=== PATIENT | male | born 1970 | race Caucasian/White ===

== ENCOUNTER → 2025-03-17 13:46 | Outpatient (BNVA) | payer SELFPAY | PROVIDERS: Visit Provider Family Medicine | DX: I10 Essential (primary) hypertension (principal); K46.9 Unspecified abdominal hernia without obstruction or gangrene; N52.9 Male erectile dysfunction, unspecified; R53.83 Other fatigue; R79.89 Other specified abnormal findings of blood chemistry | CPT/HCPCS: 80053; 80061; 82040; 84270; 84403; 84443; 85025; G0103 ==

== ENCOUNTER 2025-04-28 08:09 | Inpatient (IN) | payer OTHER, BC, MEDICAID, SELFPAY ==
[2025-04-28] VITALS (18 sets, daily range): BP systolic 128–171; BP diastolic 70–118; PULSE 76–103; RESP 16–27; TEMP 36.6–37; O2SAT 91–98; BMI 23.0
--- NOTE | 2025-04-28 08:08 | ECG_ITS ---
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 Measurements Intervals [place] Rate: 74 P: 75 AR: 131 QRS: 71 QRSD: 152 T: 236 QT: 443 QTc: 492 Interpretive Statements SINUS RHYTHM LEFT ATRIAL ENLARGEMENT [-0.15mV P-WAVE IN V1/V2] LEFT BUNDLE BRANCH BLOCK [120+ ms QRS DURATION, 80+ ms Q/S IN V1/V2, 85+ ms R IN I/aVL/V5/V6] Compared to ECG 07/31/2018 18:54:45 Atrial abnormality now present Left bundle-branch block now present Myocardial infarct finding no longer present Electronically Signed On 04-28-2025 15:36:20 CDT by Lazaro Lemus M.D. [email or web address]
--- NOTE | 2025-04-28 08:11 | XRR_ITS ---
PROCEDURE INFORMATION: Exam: XR Chest Exam date and time: 04/28/2025 8:39 AM Age: 54 years old Clinical indication: Pain; Angina pectoris; Prior surgery; Surgery date: 6+ months; Surgery type: Spine; Additional info: Chest pain TECHNIQUE: Imaging protocol: Radiologic exam of the chest. Views: 1 view. COMPARISON: CT chest abdpel [id number] 03/22/2025 10:41 AM FINDINGS: Lungs: There is a background of emphysema, mild bronchiectasis and pulmonary fibrosis. Strandy opacities are seen in the left upper hemithorax and in the lung bases bilaterally most probably representing atelectasis versus parenchymal or pleural scarring. Pleural spaces: The hemidiaphragms are partially obscured likely secondary to tiny bilateral pleural effusions. Heart/Mediastinum: The cardiac silhouette is prominent without evidence of cardiac decompensation. Bones/joints: Unremarkable. XR/XR chest 1V portable [id number] IMPRESSION: 1. There are no acute chest findings. 2. Background of emphysema, mild bronchiectasis and pulmonary fibrosis. 3. Strandy opacities in the left upper hemithorax and lung bases most probably represents atelectasis versus parenchymal or pleural scarring. 4. Probable tiny bilateral pleural effusions.
--- NOTE | 2025-04-28 08:14 | W.ED.CHESTPA ---
HPI - Chest Pain General: Chief Complaint: Chest Pain Stated Complaint: Chest Pain Time Seen by Provider: 04/28/25 08:11 History of Present Illness: 54-year-old male presents emergency room complaining of chest pain he states has been going on for a month. He was seen yesterday brought in by EMS was triaged to the rating room due to volumes. He had seen his primary care doctor had reported progressively worsening symptoms of CHF. Patient reports he had an EKG done yesterday at the doctor's office although there is no one available on the chart. Patient reports that he has an intramural thrombus for which he was prescribed Eliquis that was found 1 month ago when he was at [facility] in [place] and he states at that time he also had an angiogram they told him that his heart was only working at 20%. He left the emergency room here yesterday AMA. He reports he is still continuing to take his apixaban. Associated symptoms: Deny abdominal pain, dyspnea or fever(s) Related Data Previous Rx's ?Medication ?Instructions ?Recorded apixaban 5 mg tablet 5 mg PO BID blood clot #1 tab 03/27/25 aspirin 81 mg tablet 81 mg PO DAILY #1 tab 03/27/25 atorvastatin 40 mg tablet (Lipitor) 40 mg PO DAILY #1 tab 03/27/25 empagliflozin 10 mg tablet 10 mg PO DAILY #1 tab 03/27/25 losartan 25 mg tablet 25 mg PO DAILY #1 tab 03/27/25 metoprolol tartrate 25 mg tablet 25 mg PO BID #1 tab 03/27/25 furosemide 40 mg tablet (Lasix) 80 mg (2 x 40 mg) PO DAILY #60 tabs 04/27/25 potassium chloride 10 mEq 20 meq (2 x 10 mEq) PO DAILY #60 04/27/25 capsule,extended release caps Allergies Allergy/AdvReac Type Severity Reaction Status Date / Time morphine Allergy ALGY-Hives Verified 04/28/25 08:17 Review of Systems Const: Denies: fever(s) or chills Card: Reports: chest pain, dyspnea on exertion and orthopnea; Denies: swelling of feet/ankles Resp: Denies: dyspnea GI: Denies: abdominal pain : Denies: dysuria, urinary frequency or urinary urgency Musc: Denies: neck pain or back pain Skin/Breast: Denies: rash PFSH ED PFSH: Social History Smoking and tobacco/nicotine status: never used tobacco/nicotine Adopted: No Housing: House Marital status: Number of children: 2 Highest education level completed: 12th Grade, No Diploma service: No Current occupational status: disabled Current gender identity: Male Physical Exam Const: GENERAL APPEARANCE: cooperative ORIENTATION/CONSCIOUSNESS: Yes awake, Yes oriented to person, Yes oriented to place and Yes oriented to time HENMT: COMMON NORMALS: normocephalic, atraumatic and hearing grossly normal bilaterally HEAD & SCALP: normocephalic and atraumatic Resp: COMMON NORMALS: normal respiratory effort, No retractions and No use of accessory muscles AUSCULTATION: rales bilateral at the base Cardio: COMMON NORMALS: regular rate, regular rhythm and No murmurs present (Cardio) RATE: regular rate RHYTHM: regular rhythm GI: COMMON NORMALS: Soft to palpation and No hepatosplenomegaly present AUSCULTATION: Yes normoactive bowel sounds PALPATION: Yes Soft to palpation, No Tenderness to palpation present (GI), No Guarding due to palpation present (GI) and Yes No hepatosplenomegaly present Extremity: COMMON NORMALS: normal to inspection, capillary refill normal, no clubbing, cyanosis or edema, no calf tenderness and no pedal edema Neuro: SENSORIUM/ORIENTATION: Yes oriented to person, Yes oriented to place and Yes oriented to time Skin: COMMON NORMALS: no rashes or lesions noted GENERAL SKIN EXAM: no rashes or lesions noted Course Vital Signs: Vital signs: Vital Signs Temperature 97.8 F 04/28/25 08:09 Pulse Rate 78 04/28/25 10:00 Respiratory Rate 20 H 04/28/25 10:00 Blood Pressure 144/97 04/28/25 10:00 Pulse Oximetry 96 04/28/25 10:00 Oxygen Delivery Me thod Room Air 04/28/25 08:09 MDM - Chest Pain Medical Decision Making Patient seen evaluated initial lab work ordered. Evaluate for acute coronary syndrome, CHF, pneumonia COPD. Laboratory test ordered. Patient does have a new bundle branch block on initial EKG but this is compared to EKG from 2019. Patient is reporting that his had an angiogram done about a month ago that was completely normal. Patient presents emergency room with chest discomfort intermittently for last several weeks decompensating congestive heart failure. She has had increasing shortness of breath with exertion and increasing orthopnea. Recently hospitalized at [facility] we are trying to get those records but do not have them at this time. BNP elevated. Blood pressure improved from what patient reported yesterday. Per the patient he had an EF of 20%, normal coronary arteries in the left ventricular thrombus for which she was started on oral anticoagulant. We are working to confirm that with old records. Will admit for decompensated congestive heart failure discussed with Dr. Shukla. Patient given fentanyl and Lasix. Vital signs are stable still not requiring oxygen at this time Medical Records I reviewed the patient's medical records. Lab Data I reviewed the patient's lab results. 04/28/25 08:35 04/28/25 08:35 Radiology Impressions Chest X-Ray 04/28/25 08:11 IMPRESSION: 1. There are no acute chest findings. 2. Background of emphysema, mild bronchiectasis and pulmonary fibrosis. 3. Strandy opacities in the left upper hemithorax and lung bases most probably represents atelectasis versus parenchymal or pleural scarring. 4. Probable tiny bilateral pleural effusions. Laboratory Results WBC 9.76 10^3/uL (3.29-11.43) 04/28/25 08:35 RBC 4.87 10^6/uL (3.85-5.65) 04/28/25 08:35 Hgb 15.20 g/dL (11.27-16.99) 04/28/25 08:35 Hct 45.8 % (37-53) 04/28/25 08:35 MCV 94.0 fl (82-101) 04/28/25 08:35 MCH 31.2 pg (27-33) 04/28/25 08:35 MCHC 33.2 g/dL (30-55) 04/28/25 08:35 RDW 14.5 % (12.1-15.1) 04/28/25 08:35 Plt Count 291 10^3/cmm (157-399) 04/28/25 08:35 MPV 10.6 fL (7.4-10.4) H 04/28/25 08:35 Neut % (Auto) 66.6 % 04/28/25 08:35 Lymph % (Auto) 24.2 % 04/28/25 08:35 [place] % (Auto) 6.5 % 04/28/25 08:35 Eos % (Auto) 1.8 % 04/28/25 08:35 Baso % (Auto) 0.7 % 04/28/25 08:35 Neut # (Auto) 6.50 10^3/uL (1.8-7.7) 04/28/25 08:35 Lymph # (Auto) 2.4 10^3/uL (0.8-4.8) 04/28/25 08:35 [place] # (Auto) 0.6 10^3/uL (0.2-0.9) 04/28/25 08:35 Eos # (Auto) 0.2 10^3/uL (0.0-0.8) 04/28/25 08:35 Baso # (Auto) 0.1 10^3/uL (0.0-0.1) 04/28/25 08:35 Nucleated RBC % (auto) 0 % 04/28/25 08:35 Nucleated RBCs # 0.0 /100WBC 04/28/25 08:35 Sodium 137 mmol/L (136-145) 04/28/25 08:35 Potassium 4.8 mmol/L (3.5-5.1) 04/28/25 08:35 Chloride 101 mmol/L (98-107) 04/28/25 08:35 Carbon Dioxide 23 mmol/L (22-29) 04/28/25 08:35 Anion Gap 17.8 (5-19) 04/28/25 08:35 BUN 21 mg/dL (6-20) H 04/28/25 08:35 Creatinine 1.0 mg/dL (0.7-1.2) 04/28/25 08:35 GFR Calculation 77.3 mL/min (90-130) L 04/28/25 08:35 Glucose 110 mg/dL (65-115) 04/28/25 08:35 Calculated Osmolality 288 mOsm/kg (285-295) 04/28/25 08:35 Calcium 9.1 mg/dL (8.5-10.5) 04/28/25 08:35 Total Bilirubin 0.6 mg/dL (0.15-1.2) 04/28/25 08:35 AST 20 U/L (0-40) 04/28/25 08:35 ALT 57 U/L (0-41) H 04/28/25 08:35 Alkaline Phosphatase 107 U/L (40-130) 04/28/25 08:35 Troponin T Baseline 52 ng/L (0-15) H 04/28/25 08:35 NT-Pro-B Natriuret Pep 03914 pg/mL (0-125) H 04/28/25 08:35 Total Protein 5.8 g/dL (6.6-8.7) L 04/28/25 08:35 Albumin 3.9 g/dL (3.5-5.2) 04/28/25 08:35 Globulin 1.9 g/dL (1.3-4.6) 04/28/25 08:35 All radiology interpretation(s) finalized by discharge EKG Data EKG 1: Interpretation: EKG 04/28/2025 8:08 AM sinus rhythm with left bundle branch block. Rate of 74. [place] 131 QTc 470 changes related to left bundle branch block. Compared to EKG from July 31, 2018 left bundle branch block is new. 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
--- OUTSIDE RECORDS SUMMARY | 2025-04-28 08:17 | XMS_ITS | Clinical Summary ---
Author Organization [facility] Address [address] [place]: Epic Prelude ADT TAMMY JONES [address] Care Team Providers Care Service Advisor Name Role Phone Unavailable Primary Care Provider Unavailabl e Allergies Active Allergy Reactions Criticality Noted Date Comments Morphine Itching Low 08/02/2013 Medications apixaban (ELIQUIS) 5 mg tablet Take 1 Tablet (5 mg) by mouth 2 times daily. 60 Tablet 2 03/25/2025 1:53 PM CDT 03/25/2025 5 Active aspirin (ECOTRIN EC) 81 mg Tablet, Delayed Release (E.C.) Take 1 Tablet (81 mg) by mouth daily. 30 Tablet 2 03/25/2025 1:53 PM CDT 03/25/2025 5 Active empagliflozin (JARDIANCE) 10 mg tablet Take 1 Tablet (10 mg) by mouth daily in the morning. 30 Tablet 2 03/25/2025 1:53 PM CDT 03/26/2025 5 Active losartan (COZAAR) 25 mg tablet Take 1 Tablet (25 mg) by mouth daily. 30 Tablet 2 03/25/2025 1:53 PM CDT 03/26/2025 5 Active metoprolol tartrate (LOPRESSOR) 25 mg tablet Take 1 Tablet (25 mg) by mouth every 12 hours. 60 Tablet 2 03/25/2025 1:53 PM CDT 03/25/2025 5 Active atorvastatin (Lipitor) 40 mg tablet Take 1 Tablet (40 mg) by mouth daily. 100 Tablet 3 03/25/2025 1:53 PM CDT 03/25/2025 Active furosemide (LASIX) 40 mg tablet Take 1 Tablet (40 mg) by mouth daily. 30 Tablet 03/25/2025 1:53 PM CDT 03/26/2025 potassium CHLORIDE (KLOR-CON) 10 mEq Extended Release tablet Take 1 Tablet (10 mEq) by mouth daily with breakfast. 30 Tablet 03/25/2025 1:53 PM CDT 03/25/2025 Active Problems Problem Noted Date Diagnosed Date LV (left ventricular) mural thrombus 03/24/2025 Acute systolic heart failure 03/23/2025 ACS (acute coronary syndrome) 03/23/2025 Secondary hypertension 03/23/2025 Dyspnea on exertion 03/22/2025 Chest discomfort 03/22/2025 Inguinal hernia 03/22/2025 Tobacco abuse 03/22/2025 Mediastinal lymphadenopathy 03/22/2025 HCAP (healthcare-associated pneumonia) 4 Pleural effusion 08/12/2013 Chest pain 08/12/2013 Intra abdominal hemorrhage 08/12/2013 Overview (01/13/2021): Retropancreatic 08/02/2013 Anemia 08/12/2013 Elevated transaminase level 08/12/2013 Peripancreatic fluid collection 08/12/2013 Open wound of abdominal wall, anterior , now patricia sed. 08/08/2013 Retroperitoneal hematoma 08/02/2013 Acute blood loss anemia 08/02/2013 Encounters Date Type Department Care Team Description 04/21/2025 External Device Data ST[facility] ABSTRACTION Provider, Abstract 03/25/2025 External Device Data ST[facility] ABSTRACTION Provider, Abstract 03/24/2025 External Device Data ST[facility] ABSTRACTION Provider, Abstract 03/24/2025 External Device Data STL ABSTRACTION Provider, Abstract 03/23/2025 4:30 PM CDT - 03/23/2025 5:41 PM CDT Surgery [facility] Cardiac Import/Export Agent [address] [place] [address] Celestino Lanza MBBS Left heart cath 03/22/2025 4:56 PM CDT - 03/25/2025 3:09 PM CDT Hospital Encounter [facility] [address] [place] [address] Josh Mix MD Broughton, John D, MD Neupane, Gagan, MD Acute systolic heart failure Discharge Disposition: Home or Self Care 03/22/2025 3:25 PM CDT - 03/22/2025 11:59 PM CDT Hospital Encounter [facility] [place] [address] [place] [phone] Rajesh Aleman MD Ambulance, [facility] Discharge Dis[facility]: [facility] 03/22/2025 9:35 AM CDT - 03/22/2025 2:47 PM CDT Emergency [facility] Emergency Medicine [address] [facility] [address] [place] [phone] Rajesh Aleman MD Congestive heart failure, unspecified HF chronicity, unspecified heart failure type (CMS/HCC) (Primary Dx); Pleural effusion Discharge Disposition: [facility] 03/22/2025 Travel from Last 3 Months Immunizations Immunization Administration Dates Next Due (PNEUMOVAX 23)(50 YRS UP) PN EUMOCOCCAL POLYSACCHARIDE (PPV23) 0.5 ML, IM 08/09/2013 Influenza Vaccine Split 3+ Yrs IM 08/09/2013 Family History Medical History Relation Name Comments Healthy Daughter 1 Healthy Daughter 2 Relation Name Status Comments Daughter 1 Alive Daughter 2 Alive Social History Tobacco Use Types Packs/Day Years Used Date Smoking Tobacco: Every Day Cigars Smokeless Tobacco: Former Quit: 07/09/2007 Tobacco Cessation:Ready to Q uit: Not Asked; Counseling Given: Not Answered Alcohol Use Standard Drinks/Week Comments Never 0 (1 standard drink = 0.6 oz pur e alcohol) Feeling Safe Answer Date Recorded Are you in a relationship wi th someone who hurts you emotionally and/or physically? 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 Gender Identity Not on file Sexual Orientation Not on file Last Filed Vital Signs Vital Sign Reading Time Taken Comments Blood Pressure 160/106 03/25/2025 7:30 AM CDT Rn notified Pulse 79 03/25/2025 7:30 AM CDT Temperature 36.3 C (97.3 F) 03/25/2025 7:30 AM CDT Respiratory Rate 17 03/25/2025 7:30 AM CDT Oxygen Saturation 98% 03/25/2025 7:30 AM CDT Inhaled Oxygen Concentration - - Weight 74.4 kg (164 lb) 03/22/2025 9:37 AM CDT Height 182.9 cm (6') 03/22/2025 9:37 AM CDT Body Mass Index 22.24 03/22/2025 9:37 AM CDT Plan of Treatment Upcoming Encounters Date Type Department Care Team (Late st Contact Info) Description 2025 3:40 PM HEALTH TYPE TECHNICIAN Office Visit [facility] [address] [facility] [address] [place] [phone] Celestino Lanza, [facility] [address] [facility] [address] [place] [phone] Dilma Leon, ENGINEER FIRST ASSISTANT [address] [facility] [address] [place] [phone] Health Maintenance Due Date Last Done Comments DTAP/TDAP/TD VACCINES (1 - Tdap) 1987 HEPATITIS B VACCINES (1 of 3 - 19+ 3-dose series) 06/08 COLORECTAL SCREENING 2013 Colorectal Cancer Screening 2013 FIT-DNA Q 3 years 2013 FIT/FOBT Q 1 year 2013 Flex Sig/CT Colonography Q 5 years 2013 ZOSTER VACCINE (1 of 2) 2018 INFLUENZA VACCINE (#1) 2025 08/09/2013 Medical Devices Implanted Type Area Master [employer] Device Identifier Shelf Expiration Date Model / Serial / Lot Barrier Seprafilm 5x6in 4301-02 - [id number] Implanted:Qty : 1 on 08/04/2013 by Shane Todd MD Adhesion Barrier N/A: Abdomen GENZYME- BIOSURG 02/06/2015 [id number] -[id number] Barrier Seprafilm 5x6in 4301-02 - [id number] Implanted:Qty : 1 on 08/04/2013 by Shane Todd MD Adhesion Barrier GENZYME- BIOSURG 02/06/2015 [id number] -[id number] Procedures Procedure Name Priority Date/Time Associated Diagnosis Comments TELEMETRY REPORT 03/26/2025 1:49 AM CDT HOME O2 EVAL (DESATURATION SCREEN) Pending Discharge 03/25/2025 10:26 AM CDT EKG 12-LEAD Pending Discharge 03/25/2025 7:19 AM CDT CBC WITH DIFFERENTIAL Routine 03/25/2025 4:42 AM CDT BASIC METABOLIC PANEL Routine 03/25/2025 4:42 AM CDT UNFRACTIONATED HEPARIN ACTIVITY Timed Study 03/24/2025 11:31 AM CDT EKG 12-LEAD Routine 03/24/2025 8:17 AM CDT UNFRACTIONATED HEPARIN ACTIVITY Stat 03/24/2025 4:09 AM CDT CBC WITH DIFFERENTIAL Routine 03/24/2025 1:27 AM CDT BASIC METABOLIC PANEL Routine 03/24/2025 1:27 AM CDT LIPID RFLX Routine 03/24/2025 1:27 AM CDT CBC WITHOUT DIFFERENTIAL Routine 03/23/2025 5:46 PM CDT EKG 12-LEAD Routine 03/23/2025 4:59 PM CDT LEFT HEART CATH Routine 03/23/2025 4:21 PM CDT Chest pain ECHOCARDIOGRAM W/ CONTRAST AGENT Pending Discharge 03/23/2025 1:22 PM CDT UNFRACTIONATED HEPARIN ACTIVITY Stat 03/23/2025 12:18 PM CDT PTT Routine 03/23/2025 12:16 PM CDT CBC WITHOUT DIFFERENTIAL Routine 03/23/2025 12:16 PM CDT RT ASSESS AND TREAT Routine 03/23/2025 3 :35 AM CDT TROPONIN Routine 03/22/2025 5:24 PM CDT COMPREHENSIVE METABOLIC PANEL Stat 03/22/2025 5:24 PM CDT CBC WITHOUT DIFFERENTIAL Stat 03/22/2025 5:24 PM CDT EKG 12-LEAD Stat 03/22/2025 5:20 PM CDT TROPONIN 2 HR, 5TH GEN Timed Study 03/22/2025 11:45 AM CDT CTA CHEST + ABD/PEL W CONTRAST Stat 03/22/2025 11:05 AM CDT EKG 12-LEAD Stat 03/22/2025 10:17 AM CDT LACTIC ACID Stat 03/22/2025 9:45 AM CDT PTT Stat 03/22/2025 9:45 AM CDT PROTIME-INR Stat 03/22/2025 9:45 AM CDT TROPONIN BASELINE, 5TH GEN Stat 03/22/2025 9:45 AM CDT TSH Stat 03/22/2025 9:45 AM CDT BRAIN NATRIURETIC PEPTIDE, BNP OR PROBNP Stat 03/22/2025 9:45 AM CDT COMPREHENSIVE METABOLIC PANEL Stat 03/22/2025 9:45 AM CDT D-DIMER Stat 03/22/2025 9:45 AM CDT CBC WITH DIFFERENTIAL Stat 03/22/2025 9:45 AM CDT from Last 3 Months Results * TELEMETRY REPORT (03/26/2025 1:49 AM CDT) us Provider Scanning ECG ORDERABLES Final Result * EKG 12-LEAD (03/25/2025 7:19 AM CDT) Only the most recent of5 resultswithin the time period is included. 03/25/2025 7:19 AM CDT Narrative INTERFACE SYSTEM - 03/25/2025 7:34 AM CDT [address] [address] Test Date: 2025-03-25 Pat Name: VINNY KNUTSON Department: 12 Room: [address] [place] [address] Gender: Male Label Tacker: [email or web address] : 1970 Requested By: Order Number: [id number] Reading : Iban Menchaca Measurements Intervals [place] Rate: 80 P: 68 [place]: 132 QRS: 52 QRSD: 148 T: 134 QT: 434 QTc: 500 Interpretive Statements Normal sinus rhythm Biatrial enlargement Left bundle branch block Abnormal ECG Electronically Signed On 03-25-2025 7:34:12 CDT by Iban Menchaca Procedure Note Iban Menchaca MD - 03/25/[address] [address] Test Date: 2025-03-25 Pat Name: VINNY KNUTSON Department: 12 Room: [facility] 02 Gender: Male Label Tacker: [email or web address] : 1970 Requested By: Order Number: [id number] Reading : Iban Menchaca Measurements Intervals [place] Rate: 80 P: 68 OH: 132 QRS: 52 QRSD: 148 T: 134 QT: 434 QTc: 500 Interpretive Statements Normal sinus rhythm Biatrial enlargement Left bundle branch block Abnormal ECG Electronically Signed On 03-25-2025 7:34:12 CDT by Iban Menchaca Celestino CASTLE ECG ORDERABLES Final Result INTERFACE SYSTEM Refer to clinic/hospital department * (ABNORMAL) CBC WITH DIFFERENTIAL (03/25/2025 4:42 AM CDT) Only the most recent of3 resultswithin the time period is included. [facility] WBC 9.2 4.8 - 10.8 K/uL 03/25/2025 5:17 AM CDT [facility] RBC 4.88 4.60 - 6.20 M/uL 03/25/2025 5:17 AM CDT [facility] [employer] [facility] HEMOGLOBIN 15.4 14.0 - 18.0 g/dL 03/25/2025 5:17 AM [facility] [employer] [facility] HEMATOCRIT 45.5 41.0 - 53.0 % 03/25/2025 5:17 AM [facility] [employer] [facility] MCV 93.2 84.0 - 103.0 fL 03/25/2025 5:17 AM [facility] [employer] [facility] MCH 31.6 27.0 - 34.0 pg 03/25/2025 5:17 AM [facility] [facility] MCHC 33.8 30.0 - 35.0 g/dL 03/25/2025 5:17 AM CDREPLACED BY [facility] [employer] [facility] PLATELETS 315 140 - 440 K/uL 03/25/2025 5:17 AM [facility] [employer] [facility] MPV 11.0 8.9 - 12.8 fL 03/25/2025 5:17 AM CDREPLACED BY [facility] RDW 14.1 11.0 - 14.5 % 03/25/2025 5:17 AM CDREPLACED BY [facility] [employer] [facility] RDW-STDEV 47.8 37.0 - 54.0 fL 03/25/2025 5:17 AM CDT [facility] [employer] [facility] NEUTROPHILS 55 42 - 75 % 03/25/2025 5:17 AM CDT [facility] [facility] LYMPHOCYTES 33 24 - 44 % 03/25/2025 5:17 AM CDT [facility] MONOCYTES 8 2 - 10 % 03/25/2025 5:17 AM CDT [facility] EOSINOPHILS 3 0 - 7 % 03/25/2025 5:17 AM CDT [facility] BASOPHILS 1 0 - 1 % 03/25/2025 5:17 AM CDT [facility] IMMATURE GRANULOCYTES 0 0 - 2 % 03/25/2025 5:17 AM CDT [facility] NEUTROPHIL ABSOLUTE 5.11 2.00 - 8.00 K/uL 03/25/2025 5:17 AM CDT [facility] LYMPHOCYTE ABSOLUTE 3.02 1.20 - 4.00 K/uL 03/25/2025 5:17 AM CDT [facility] MONOCYTE ABSOLUTE 0.71(H) 0.10 - 0.60 K/uL 03/25/2025 5:17 AM CDT [facility] EOSINOPHIL ABSOLUTE 0.26 0.00 - 0.70 K/uL 03/25/2025 5:17 AM CDT [facility] BASOPHILS ABSOLUTE 0.09 0.00 - 0.20 K/uL 03/25/2025 5:17 AM CDT [facility] IMMATURE GRANULOCYTES ABSOLUTE 0.03 0.00 - 0.10 K/uL 03/25/2025 5:17 AM CDT [facility] SMEAR REVIEWED: NA - Not Applicable 03/25/2025 5:17 AM CDT [facility] Blood Venipuncture / Unknown 03/25/2025 4:42 AM CDT 03/25/2025 5:12 AM CDT us Bennett De La Cruz MD HEMATOLOGY ORDERABLES Final Res ult [facility] CLIA # [id number] [facility] [address] [place] [address] * (ABNORMAL) BASIC METABOLIC PANEL (03/25/2025 4:42 AM CDT) Only the most recent of2 resultswithin the time period is included. SODIUM 141 136 - 145 mmol/L 03/25/2025 5:44 AM T [facility] POTASSIUM 4.1 3.5 - 5.1 mmol/L 03/25/2025 5:44 AM T [facility] CHLORIDE 107 98 - 107 mmol/L 03/25/2025 5:44 AM T [facility] CO2 22 22 - 29 mmol/L 03/25/2025 5:44 AM CDT [facility] CALCIUM 9.0 8.6 - 10.0 mg/dL 03/25/2025 5:44 AM T [facility] BUN 24(H) 6 - 20 mg/dL 03/25/2025 5:44 AM T [facility] CREATININE 1.09 0.67 - 1.17 mg/dL 03/25/2025 5:44 AM T [facility] GLUCOSE 101(H) 74 - 99 mg/dL 03/25/2025 5:44 AM T [facility] GFR >60 >=60 mL/min/1.7 3 sq meter 03/25/2025 5:44 AM T [facility] Comment:eGFR calculated with 2020 CKD-EPI equation. Vegetarian diet, extremely high or low muscle mass, and may affect results. Cystatin C with Glomerular Filtration Rate is a suitable alternative for these patients. ANION GAP 12 9 - 20 mmol/L 03/25/2025 5:44 AM T [facility] Blood Venipuncture / Unknown 03/25/2025 4:42 AM CDT 03/25/2025 5:12 AM CDT us Bennett De La Cruz MD CHEMISTRY ORDERABLES Final Resu lt [facility] CLIA # [id number] [facility] [address] * UNFRACTIONATED HEPARIN MONITORING (03/24/2025 11:31 AM CDT) Only the most recent of3 resultswithin the time period is included. Pathologist [facility] ANTI-XA UNFRAC HEP 0.56 See Interpretation IU/mL 03/24/2025 11:59 AM CDT [facility] Blood Venipuncture / Unknown 03/24/2025 11:31 AM CDT 03/24/2025 11:43 AM CDT [facility] - 03/24/2025 11:59 AM CDT Therapeutic Range: PT/DVT Heparin Protocol 0.3 - 0.7 IU/ml Cardiac Heparin Protocol 0.3 - 0.6 IU/ml The reference range for this test is specific to the anticoagulant and is not appropriate for monitoring patients on a DOAC protocol. us Bennett De La Cruz MD HEMATOLOGY ORDERABLES Final Res ult [facility] CLIA # [id number] [address] [place] [address] * (ABNORMAL) LIPID RFLX (03/24/2025 1:27 AM CDT) [facility] CHOLESTEROL 155 <200 mg/dL 03/24/2025 2:33 AM CDT [facility] TRIGLYCERIDE 187(H) <150 mg/dL 03/24/2025 2:33 AM T [facility] HDL 36(L) 40 - 59 mg/dL 03/24/2025 2:33 AM T [facility] LDL CALCULATED 82 <100 mg/dL 03/24/2025 2:33 AM T [facility] NON-HDL CHOLESTEROL 119 <130 mg/dL 03/24/2025 2:33 AM T [facility] Blood Venipuncture / Unknown 03/24/2025 1:27 AM CDT 03/24/2025 1:58 AM CDT Narrative [facility] - 03/24/2025 2:33 AM CDT TOTAL CHOLESTEROL mg/dL Desirable <200 Borderline high 200-239 High >=240 TRIGLYCERIDES mg/dL Normal <150 Borderline high 150-199 High 200-499 Very high >=500 HDL CHOLESTEROL mg/dL Low <40 Normal 40-59 Desirable >=60 NON HDL CHOLESTEROL mg/dL Optimal <130 Near Optimal 130-159 Borderline High 160-189 Very High >=190 CALCULATED LDL mg/dL LDL <70, OPTIMAL if have Atherosclerotic cardiovascular disease (ASCVD) or intermediate or higher (>7.5%) 10 year risk of ASCVD including most adults with diabetes. LDL <100, Optimal in adult patients with low (<7.5%) 10 year ASCVD risk LDL 100-160, Suboptimal LDL >160, High LDL >190, Very high LDL calculated using the Friedewald equation. ATPIII Guidelines Reference Ranges for Lipid Panels (NCEP/AMA) . Celestino CASTLE CHEMISTRY ORDERABLES F inal Result [facility] # [id number] [address] [place] [address] * (ABNORMAL) CBC WITHOUT DIFFERENTIAL (03/23/2025 5:46 PM CDT) Only the most recent of3 resultswithin the time period is included. WBC 12.2(H) 4.8 - 10.8 K/uL 03/23/2025 6:16 PM CDT [facility] RBC 5.39 4.60 - 6.20 M/uL 03/23/2025 6:16 PM CDT [facility] HEMOGLOBIN 16.8 14.0 - 18.0 g/dL 03/23/2025 6:16 PM CDT [facility] HEMATOCRIT 49.7 41.0 - 53.0 % 03/23/2025 6:16 PM CDT [facility] MCV 92.2 84.0 - 103.0 fL 03/23/2025 6:16 PM CDT [facility] MCH 31.2 27.0 - 34.0 pg 03/23/2025 6:16 PM CDT [facility] MCHC 33.8 30.0 - 35.0 g/dL 03/23/2025 6:16 PM CDT [facility] PLATELETS 309 140 - 440 K/uL 03/23/2025 6:16 PM CDT [facility] MPV 10.7 8.9 - 12.8 fL 03/23/2025 6:16 PM CDT [facility] RDW 13.7 11.0 - 14.5 % 03/23/2025 6:16 PM CDT [facility] RDW-STDEV 46.5 37.0 - 54.0 fL 03/23/2025 6:16 PM CDT [facility] Blood Venipuncture / Unknown 03/23/2025 5:46 PM CDT 03/23/2025 6:06 PM CDT us Celestino CASTLE HEMATOLOGY ORDERABLES Final Result [facility] CLIA # [id number] [address] [place] [address] [place] [address] * LEFT HEART CATH (03/23/2025 4:21 PM CDT) 03/23/2025 4:00 PM CDT Impressions [facility] - 03/23/2025 4:28 PM CDT S: 6-Wrx-ahmxvgifvux CAD 3-Mke-bpfkctpb cardiomyopathy RECOMMENDATIONS: 1 -GDMT 2-Maximum medical therapy 3-Transfer to the floor Celestino Lanza MD, FACC Interventional and Structural cardiology Narrative [facility] - 03/23/2025 4:28 PM CDT CARDIAC CATHETERIZATION REPORT [place], [place] PATIENT: Vinny Knutson PATIENT NUMBER: [id number] BIRTHDATE: 1970 REFERRING PHYSICIAN: No primary care provider on file. DATE: 03/23/2025 TIME: 4:28 PM PROCEDURE: Coronary angiogram INDICATION: New onset HF with reduced EF After carefully discussing potential benefits/ risks of and alternatives to cardiac catheterization and possible intervention at length with the patient, informed consent was obtained. The right radial was prepped and draped in the usual manner. Continuous blood pressure, ECG, and oxygen saturation monitoring were utilized. Carefully titrated conscious sedation was achieved. I personally supervised whatever conscious sedation with versed and fentanyl. Following infiltration of 1% lidocaine local anesthetic, a 6 FR right radial arterial sheath was inserted over a flexible guidewire using single wall technique. There were no apparent complications. CORONARY ANGIOGRAPHY: Left main: Large caliber vessel with no significant stenosis. Bifurcates into LAD and LCX Left anterior descending artery :Large caliber vessel with mLAD 30% stenosis Left circumflex artery: Large vessel with no stenosis Right coronary artery:Large dominant vessel with no stenosis Estimated blood loss: <30ml. Coronary Findings Diagnostic Dominance: Right No diagnostic findings have been documented. Intervention No interventions have been documented. Estimated Blood Loss There was minimal blood loss during procedure. us Dilma Leon ENGINEER FIRST ASSISTANT CUP CATH ORDERABLES Final Result [facility] [id number] [address] [facility] [address] [place] [phone], * ECHOCARDIOGRAM W/ CONTRAST AGENT (03/23/2025 1:22 PM CDT) EJECTION FRACTION 22 INTERFACE SYSTEM 03/23/2025 10:5 6 AM CDT Narrative INTERFACE SYSTEM - 03/23/2025 11:45 AM CDT [facility] Echocardiography Laboratory [address] [place] [address] Transthoracic Echocardiography Patient: Vinny Knutson Study ID: ECHO COMPLETE - W Gender: M : 1970 Age: 54 Room: [facility] Study 03/23/2025 Pt Inpatient Date: Status: Study 10:56:42 AM CSN #: [id number] Time: Ordering:Dilma Leon Marketing Secretary: DMD Indications and History: Chest pain. Summary and Conclusion: - Left ventricle: The cavity size is normal. Wall thickness is normal. Global systolic function is severely reduced. The estimated ejection fraction is 20-25%. For Epic reporting: the left ventricular ejection fraction is 22% by biplane method of disks. There is diffuse hypokinesis with regional variability. Grade II diastolic dysfunction. The longitudinal strain is -5.2% (Normal range is -18 to -25). - There is small thrombus measuring 0.8 x 0.5 cm in the LV apex. - Right ventricle: The cavity size is normal. Systolic function is normal. Systolic pressure is moderately increased. The estimated peak pressure is 49mm Hg. - Mitral valve: There is mild to moderate regurgitation. - Tricuspid valve: There is mild-moderate regurgitation. - Pericardium: A minimal pericardial effusion and/or fat pad was identified. There is a left pleural effusion. Impressions: Severe LV dysfunction. Small LV apical thrombus. Comparison: Compared to the previous study, LV systolic functionhas worsened. Apical LV thrombus noted. Prior Study Date: 08/12/2013. Recommendations: This procedure has been discussed with the referring physician, Dr. De La Cruz Procedure information: Comparison is made to the study of 08/12/2013. Study status: Routine. Procedure: A transthoracic echocardiogram was performed. Image quality was adequate. Scanning was performed from the parasternal, apical, subcostal, and suprasternal notch acoustic windows. Intravenous contrast (Definity) was administered. Study components: M-mode, 2D, complete spectral Doppler, and color Doppler. Height: 182.9cm. Height: 72in. Weight: 74.4kg. Weight: 164lb. BMI: 22.2kg/m^2. BSA: 1.94m^2. Blood pressure: 148/98 Study date: 03/23/2025. Study time: 10:56 AM. Location: Bedside. Cardiac Anatomy: LEFT VENTRICLE: The cavity size is normal. Wall thickness is normal. Global systolic function is severely reduced. The estimated ejection fraction is 20-25%. For Epic reporting: the left ventricular ejection fraction is 22% by biplane method of disks. There is diffuse hypokinesis with regional variability. The longitudinal strain is -5.2% (Normal range is -18 to -25). Grade II diastolic dysfunction. RIGHT VENTRICLE: The cavity size is normal. Systolic function is normal. Systolic pressure is moderately increased. The estimated peak pressure is 49mm Hg. LEFT ATRIUM: The atrium is normal in size. RIGHT ATRIUM: The atrium is normal in size. ATRIAL SEPTUM: No obvious PFO or ASD identified by 2D imaging and color Doppler. AORTIC VALVE: The valve is trileaflet. The leaflets are normal thickness. Mobility is not restricted. There is no stenosis. There is no significant regurgitation. MITRAL VALVE: Structurally normal valve. Mobility is not restricted. No evidence for prolapse. There is no evidence for stenosis. There is mild to moderate regurgitation. TRICUSPID VALVE: Structurally normal valve. Mobility is unrestricted. There is no evidence for stenosis. There is mild-moderate regurgitation. PULMONIC VALVE: Not well visualized. The valve appears to be grossly normal. There is no evidence for stenosis. There is no significant regurgitation. PERICARDIUM: A minimal pericardial effusion and/or fat pad was identified. There is a left pleural effusion. AORTA: Aortic root: The root is not dilated. Aortic arch: The vessel is not dilated. INTRACARDIAC MASS THROMBUS: No apparent intracavitary masses or thrombi detected. Measurements Left ventricle Value Left atrium continued Value GLS, 2D -5.2 % SI dim, A4C 5.9 cm JULISSA, LAX 7.5 cm Area ES, A4C 26 cm^2 ESD, LAX 5.8 cm Vol, S 98 ml JULISSA/bsa, LAX 3.9 cm/m^2 Vol/bsa, S 50 ml/m^2 ESD/bsa, LAX 3.0 cm/m^2 Vol, ES, 1-p A4C 96 ml FS, LAX 22 % Vol/bsa, ES, 1-p A4C 49 ml/m^2 ESD major ax, A4C 10.4 cm Vol, ES, 1-p A2C 95 ml ESD/bsa major ax, A4C 5.3 cm/m^2 Vol/bsa, ES, 1-p A2C 49 ml/m^2 JULISSA minor ax, A4C 10.4 cm Vol, ES, A/L 97 ml JULISSA/bsa minor ax, A4C 5.3 cm/m^2 Vol/bsa, ES, A/L 50 ml/m^2 JULISSA major ax, A2C 11.3 cm ESD major ax, A2C 10.9 cm Right atrium Value JULISSA/bsa major ax, A2C 5.8 cm/m^2 Area, ES 17 cm^2 ESD/bsa major ax, A2C 5.6 cm/m^2 Area, ES, A4C 17 cm^2 IVS, ED 0.7 cm ESD 5.8 cm Aortic valve Value ESD/bsa 3.0 cm/m^2 Peak v, S 90.08 cm/sec PW, ED 0.7 cm Peak grad, S 3 mm Hg IVS/PW, ED 0.97 LVOT/AV, Vpeak ratio 0.75 EDV, 1-p A2C 289 ml ESV, 1-p A2C 72 ml Mitral valve Value EF, 1-p A2C 25 % Peak E 88 cm/sec EDV/bsa, 1-p A2C 149 ml/m^2 Peak A 62.65 cm/sec ESV/bsa, 1-p A2C 37 ml/m^2 Decel time 136 ms EDV, 1-p A4C 247 ml PHT 39 ms ESV, 1-p A4C 189 ml Peak grad, D 3 mm Hg EF, 1-p A4C 23 % Peak E/A ratio 1.4 SV, 1-p A4C 57 ml MVA, PHT 5.59 cm^2 EDV/bsa, 1-p A4C 127 ml/m^2 MVA/bsa, PHT 2.88 cm^2/m^2 ESV/bsa, 1-p A4C 98 ml/m^2 Vena contracta width 2.2 cm SV/bsa, 1-p A4C 29 ml/m^2 ERO, LVOT cont 0.15 cm^2 EDV, 2-p 266 ml MR peak v 564.24 cm/sec ESV, 2-p 207 ml Peak LV-LA grad S 127 mm Hg EF, 2-p 22 % MR alias velocity 32.45 cm/sec SV, 2-p 218 ml MR PISA radius 0.6 cm EDV/bsa, 2-p 137 ml/m^2 Max MR v 564.24 cm/sec ESV/bsa, 2-p 106 ml/m^2 Peak LV-LA grad S 127 mm Hg SV/bsa, 2-p 112 ml/m^2 Regurg VTI 181.4 cm ERO, PISA 0.15 cm^2 LVOT Value MR vol PISA 27 ml Peak collette, S 67.46 cm/sec Peak grad, S 2 mm Hg Tricuspid valve Value TR peak v 307.85 cm/sec Right ventricle Value Peak RV-RA grad, S 38 mm Hg JULISSA, LAX 2.2 cm JULISSA 2.2 cm Inferior vena cava Value Diam 1.6 cm Left atrium Value AP dim, ES 4.7 cm Other Value AP dim index, ES 2.4 cm/m^2 Legend: (L) and (H) anthony values outside specified reference range. [facility] are accredited with the [facility] Accreditation Commission - Echocardiography. CRITICAL FINDINGS , was reported to DR. Sanz by MARY, on 03/23/2025, at 11:04 AM. Prepared and Electronically Authenticated Jf Santiago Confirmed 03/23/2025 11:45 Procedure Note Jf Santiago MD - 03/23/2025 [facility] Echocardi[facility] Laboratory [address] [place] [address] Transthoracic Echocardiography Patient: Vinny Knutson Study ID: ECHO COMPLETE- W Gender: M : 1970 Age: 54 Room: [facility] Study 03/23/2025 Pt Inpatient Date: Status: Study 10:56:42 AM CSN #: [id number] Time: Ordering:Dilma Leon Marketing Secretary: MARY Indications and History: Chest pain. Summary and Conclusion: - Left ventricle: The cavity size is normal. Wall thickness is normal.Global systolic function is severely reduced. The estimated ejection fractionis 20-25%. For Epic reporting: the left ventricular ejection fraction is22% by biplane method of disks. There is diffuse hypokinesis with regional variability. Grade II diastolic dysfunction. The longitudinal strainis -5.2% (Normal range is -18 to -25). - There is small thrombus measuring 0.8 x 0.5 cm in the LV apex. - Right ventricle: The cavity size is normal. Systolic function isnormal. Systolic pressure is moderately increased. The estimated peak pressureis 49mm Hg. - Mitral valve: There is mild to moderate regurgitation. - Tricuspid valve: There is mild-moderate regurgitation. - Pericardium: A minimal pericardial effusion and/or fat pad wasidentified. There is a left pleural effusion. Impressions: Severe LV dysfunction. Small LV apical thrombus. Comparison: Compared to the previous study, LV systolic functionhasworsened. Apical LV thrombus noted. Prior Study Date: 08/12/2013. Recommendations: This procedure has been discussed with the referring physician, Dr. De La Cruz Procedure information: Comparison is made to the study of 08/12/2013.Study status: Routine. Procedure: A transthoracic echocardiogram wasperformed. Image quality was adequate. Scanning was performed from the parasternal, apical, subcostal, and suprasternal notch acoustic windows. Intravenous contrast (Definity) was administered. Study components: M-mode,2D, complete spectral Doppler, and color Doppler. Height: 182.9cm.Height: 72in. Weight: 74.4kg. Weight: 164lb. BMI: 22.2kg/m^2. BSA:1.94m^2. Blood pressure: 148/98 Study date: 03/23/2025. Study time: 10:56AM. Location: Bedside. Cardiac Anatomy: LEFT VENTRICLE: The cavity size is normal. Wall thickness is normal.Global systolic function is severely reduced. The estimated ejection fractionis 20-25%. For Epic reporting: the left ventricular ejection fraction is 22%by biplane method of disks. There is diffuse hypokinesis with regional variability. The longitudinal strain is -5.2% (Normal range is -18 to-25). Grade II diastolic dysfunction. RIGHT VENTRICLE: The cavity size is normal. Systolic function isnormal. Systolic pressure is moderately increased. The estimated peak pressure is49mm Hg. LEFT ATRIUM: The atrium is normal in size. RIGHT ATRIUM: The atrium is normal in size. ATRIAL SEPTUM: No obvious PFO or ASD identified by 2D imaging and color Doppler. AORTIC VALVE: The valve is trileaflet. The leaflets are normalthickness. Mobility is not restricted. There is no stenosis. There is nosignificant regurgitation. MITRAL VALVE: Structurally normal valve. Mobility is not restricted.No evidence for prolapse. There is no evidence for stenosis. There is mildto moderate regurgitation. TRICUSPID VALVE: Structurally normal valve. Mobility isunrestricted. There is no evidence for stenosis. There is mild-moderateregurgitation. PULMONIC VALVE: Not well visualized. The valve appears to be grosslynormal. There is no evidence for stenosis. There is no significantregurgitation. PERICARDIUM: A minimal pericardial effusion and/or fat pad wasidentified. There is a left pleural effusion. AORTA: Aortic root: The root is not dilated. Aortic arch: The vessel is not dilated. INTRACARDIAC MASS THROMBUS: No apparent intracavitary masses or thrombi detected. Measurements Left ventricle Value Left atrium continued Value GLS, 2D -5.2 % SI dim, A4C 5.9 cm JULISSA, LAX 7.5 cm Area ES, A4C 26 cm^2 ESD, LAX 5.8 cm Vol, S 98 ml JULISSA/bsa, LAX 3.9 cm/m^2 Vol/bsa, S 50ml/m^2 ESD/bsa, LAX 3.0 cm/m^2 Vol, ES, 1-p A4C 96 ml FS, LAX 22 % Vol/bsa, ES, 1-p A4C 49ml/m^2 ESD major ax, A4C 10.4 cm Vol, ES, 1-p A2C 95 ml ESD/bsa major ax, A4C 5.3 cm/m^2 Vol/bsa, ES, 1-p A2C 49ml/m^2 JULISSA minor ax, A4C 10.4 cm Vol, ES, A/L 97 ml JULISSA/bsa minor ax, A4C 5.3 cm/m^2 Vol/bsa, ES, A/L 50ml/m^2 JULISSA major ax, A2C 11.3 cm ESD major ax, A2C 10.9 cm Right atrium Value JULISSA/bsa major ax, A2C 5.8 cm/m^2 Area, ES 17 cm^2 ESD/bsa major ax, A2C 5.6 cm/m^2 Area, ES, A4C 17 cm^2 IVS, ED 0.7 cm ESD 5.8 cm Aortic valve Value ESD/bsa 3.0 cm/m^2 Peak v, S 90.08cm/sec PW, ED 0.7 cm Peak grad, S 3 mmHg IVS/PW, ED 0.97 LVOT/AV, Vpeak ratio 0.75 EDV, 1-p A2C 289 ml ESV, 1-p A2C 72 ml Mitral valve Value EF, 1-p A2C 25 % Peak E 88cm/sec EDV/bsa, 1-p A2C 149 ml/m^2 Peak A 62.65cm/sec ESV/bsa, 1-p A2C 37 ml/m^2 Decel time 136 ms EDV, 1-p A4C 247 ml PHT 39 ms ESV, 1-p A4C 189 ml Peak grad, D 3 mmHg EF, 1-p A4C 23 % Peak E/A ratio 1.4 SV, 1-p A4C 57 ml MVA, PHT 5.59 cm^2 EDV/bsa, 1-p A4C 127 ml/m^2 MVA/bsa, PHT 2.88cm^2/m^2 ESV/bsa, 1-p A4C 98 ml/m^2 Vena contracta width 2.2 cm SV/bsa, 1-p A4C 29 ml/m^2 ERO, LVOT cont 0.15 cm^2 EDV, 2-p 266 ml MR peak v 564.24cm/sec ESV, 2-p 207 ml Peak LV-LA grad S 127 mmHg EF, 2-p 22 % MR alias velocity 32.45cm/sec SV, 2-p 218 ml MR PISA radius 0.6 cm EDV/bsa, 2-p 137 ml/m^2 Max MR v 564.24cm/sec ESV/bsa, 2-p 106 ml/m^2 Peak LV-LA grad S 127 mmHg SV/bsa, 2-p 112 ml/m^2 Regurg VTI 181.4 cm ERO, PISA 0.15 cm^2 LVOT Value MR vol, PISA 27 ml Peak collette, S 67.46 cm/sec Peak grad, S 2 mm Hg Tricuspid valve Value TR peak v 307.85cm/sec Right ventricle Value Peak RV-RA grad, S 38 mmHg JULISSA, LAX 2.2 cm JULISSA 2.2 cm Inferior vena cava Value Diam 1.6 cm Left atrium Value AP dim, ES 4.7 cm Other Value AP dim index, ES 2.4 cm/m^2 Legend: (L) and (H) anthony values outside specified reference range. [facility] are accredited with the[facility] Accreditation Commission - Echocardiography. CRITICAL FINDINGS , was reported to DR. Sanz by MARY, on 03/23/2025, at 11:04 AM. Prepared and Electronically Authenticated Jf Santiago Confirmed 03/23/2025 11:45 us Dilma Leon [facility] US ORDERABLES Final Resu lt Performing Organization Address City/State/RUST de Phone Number INTERFACE SYSTEM Refer to clinic/hospital department * PTT (03/23/2025 12:16 PM CDT) Only the most recent of2 resultswithin the time period is included. PTT 30.2 24.8 - 37.2 seconds 03/23/2025 12:40 PM CDT [facility] Blood Venipuncture / Unknown 03/23/2025 12:16 PM CDT 03/23/2025 12:22 PM CDT Narrative [facility] - 03/23/2025 12:40 PM CDT Therapeutic Range: Hi-level PE/DVT heparin protocol 80.1 - 95.0 sec Lo-level PE/DVT heparin protocol 70.1 - 85.0 sec Cardiac Heparin Protocol 70.1 - 100.0 sec us Bennett De La Cruz MD HEMATOLOGY ORDERABLES Final Res ult Performing Organization Address [facility] Co de Phone Number [facility] CLIA # [id number] [address] [place] [address] * (ABNORMAL) TROPONIN (03/22/2025 5:24 PM CDT) Pathologist [facility] TROPONIN T, 5TH GEN 39(H) <=15 ng/L 03/22/2025 6:18 PM CDT [facility] Blood Venipuncture / Unknown 03/22/2025 5:24 PM CDT 03/22/2025 5:37 PM CDT Narrative [facility] - 03/22/2025 6:18 PM CDT Troponin elevated. us Lars Casper MD CHEMISTRY ORDERABLES Final R esult Performing Organization Address [facility] Co de Phone Number [facility] CLIA # [id number] [address] [place] [address] * (ABNORMAL) COMPREHENSIVE METABOLIC PANEL (03/22/2025 5:24 PM CDT) Only the most recent of2 resultswithin the time period is included. [facility] SODIUM 139 136 - 145 mmol/L 03/22/2025 6:11 PM [facility] POTASSIUM 4.0 3.5 - 5.1 mmol/L 03/22/2025 6:11 PM [facility] CHLORIDE 105 98 - 107 mmol/L 03/22/2025 6:11 PM [facility] CO2 23 22 - 29 mmol/L 03/22/2025 6:11 PM [facility] CALCIUM 8.9 8.6 - 10.0 mg/dL 03/22/2025 6:11 PM [facility] BUN 19 6 - 20 mg/dL 03/22/2025 6:11 PM [facility] CREATININE 1.07 0.67 - 1.17 mg/dL 03/22/2025 6:11 PM [facility] GLUCOSE 109(H) 74 - 99 mg/dL 03/22/2025 6:11 PM [facility] TOTAL PROTEIN 6.3(L) 6.4 - 8.3 g/dL 03/22/2025 6:11 PM [facility] ALBUMIN 3.8 3.5 - 5.2 g/dL 03/22/2025 6:11 PM [facility] BILIRUBIN TOTAL 0.6 0.0 - 1.0 mg/dL 03/22/2025 6:11 PM [facility] ALKALINE PHOSPHATASE 107 40 - 129 U/L 03/22/2025 6:11 PM [facility] AST 18 10 - 50 U/L 03/22/2025 6:11 PM [facility] ALT 33 <=50 U/L 03/22/2025 6:11 PM [facility] GFR >60 >=60 mL/min/1.7 3 sq meter 03/22/2025 6:11 PM [facility] Comment:eGFR calculated with 2020 CKD-EPI equation. Vegetarian diet, extremely high or low muscle mass, and may affect results. Cystatin C with Glomerular Filtration Rate is a suitable alternative for these patients. ANION GAP 11 9 - 20 mmol/L 03/22/2025 6:11 PM CDT [facility] Blood Venipuncture / Unknown 03/22/2025 5:24 PM CDT 03/22/2025 5:37 PM CDT us Lars Casper MD CHEMISTRY ORDERABLES Final R esult [facility] CLIA # [id number] [address] [place] [address] * (ABNORMAL) TROPONIN 2 HR, 5TH GEN (03/22/2025 11:45 AM CDT) TROPONIN T, 2 HR 5TH GEN 37(H) <=15 ng/L 03/22/2025 12:13 PM CDT [facility] DELTA 2HR TROPONIN T -5 See Interp. 03/22/2025 12:13 PM CDT [facility] Blood Venipuncture / Unknown 03/22/2025 11:45 AM CDT 03/22/2025 11:57 AM CDT Narrative [facility] - 03/22/2025 12:13 PM CDT Troponin elevated. Delta indeterminate. us Rajesh Aleman MD CHEMISTRY ORDERABLES Final Result [facility] CLIA # [id number] [address] [place] [id number] * CTA CHEST + ABD/PEL W CONTRAST (03/22/2025 11:05 AM CDT) Anatomical Region Laterality Modality Chest, Abdomen, Pelvis Computed Tomography 03/22/2025 10:4 1 AM CDT Impressions 03/22/2025 11:34 AM CDT IMPRESSION: Please see below. Exam: CTA CHEST + ABD/PEL W CONTRAST Date/Time of Exam: 03/22/2025 11:05 AM Reason For Exam: Concern for PE and abd pain. Diagnosis: See Reason for Exam. Technique: CTA of the chest, abdomen, and pelvis was performed following the administration of intravenous contrast. Post-processing was performed, including sagittal and coronal reformations and 3-D reconstruction. Contrast: 100 mL Isovue-300 Findings: CHEST: No pulmonary emboli. Moderately large bilateral pleural effusions. No pneumothorax. Mildly accentuated interlobular septa of both lungs. Trace dependent atelectasis. Thoracic aorta is not aneurysmal. Clusters of top normal sized mediastinal lymph nodes. No axillary lymphadenopathy. ABDOMEN: No ascites. No free air. Bladder within normal limits. Sigmoid diverticulosis. No obstructive pattern of bowel. Absent appendix. Abdominal aorta is nonaneurysmal. No retroperitoneal lymphadenopathy. Few tiny hepatic cysts. Gallbladder unremarkable. Spleen unremarkable. No hydronephrosis or concerning renal lesion with small renal cysts. Pancreas and adrenals within normal limits. Disc arthroplasty lower levels of lumbar spine. No concerning skeletal pathology. IMPRESSION: No pulmonary emboli. Moderate large bilateral pleural effusions. No acute pathology below level of diaphragm. Narrative Procedure Note Celena Guzman MD - 03/22/2025 IMPRESSION: Please see below. Exam: CTA CHEST + ABD/PEL W CONTRAST Date/Time of Exam: 03/22/2025 11:05 AM Reason For Exam: Concern for PE and abd pain. Diagnosis: See Reason for Exam. Technique: CTA of the chest, abdomen, and pelvis was performed following the administration of intravenous contrast. Post-processing was performed, including sagittal and coronal reformations and 3-D reconstruction. Contrast: 100 mL Isovue-300 Findings: CHEST: No pulmonary emboli. Moderately large bilateral pleural effusions. No pneumothorax. Mildly accentuated interlobular septa of both lungs. Trace dependent atelectasis. Thoracic aorta is not aneurysmal. Clusters of top normal sized mediastinal lymph nodes. No axillary lymphadenopathy. ABDOMEN: No ascites. No free air. Bladder within normal limits. Sigmoid diverticulosis. No obstructive pattern of bowel. Absent appendix. Abdominal aorta is nonaneurysmal. No retroperitoneal lymphadenopathy. Few tiny hepatic cysts. Gallbladder unremarkable. Spleen unremarkable. No hydronephrosis or concerning renal lesion with small renal cysts. Pancreas and adrenals within normal limits. Disc arthroplasty lower levels of lumbar spine. No concerning skeletal pathology. IMPRESSION: No pulmonary emboli. Moderate large bilateral pleural effusions. No acute pathology below level of diaphragm. us Rajesh Aleman MD CT ORDERABLES Final Result * (ABNORMAL) TROPONIN BASELINE, 5TH GEN (03/22/2025 9:45 AM CDT) TROPONIN T, BASELINE 5TH GEN 42(H) <=15 ng/L 03/22/2025 10:26 AM CDT [facility] Blood Venipuncture / Unknown 03/22/2025 9:45 AM CDT 03/22/2025 9:58 AM CDT Narrative [facility] - 03/22/2025 10:26 AM CDT Troponin elevated. us Rajesh Aleman MD CHEMISTRY ORDERABLES Final Result Performing Organization Address City/[facility]/ZIP Co de Phone Number [facility] CLIA # [id number] [address] [place] [address] * (ABNORMAL) LACTIC ACID (03/22/2025 9:45 AM CDT) LACTIC ACID 2.6(H) <=2.0 mmol/L 03/22/2025 10:21 AM CDT [facility] Blood BLOOD SPECIMEN / Unknown Venipuncture / Unknown 03/22/2025 9:45 AM CDT 03/22/2025 9:58 AM CDT us Rajesh Aleman MD CHEMISTRY ORDERABLES Final Result [facility] CLIA # [id number] [address] [place] [address] * PROTIME-INR (03/22/2025 9:45 AM CDT) PROTIME 13.0 12.1 - 14.3 Seconds 03/22/2025 10:21 AM CDT [facility] INR 1.0 0.9 - 1.1 03/22/2025 10:21 AM CDT [facility] Blood Venipuncture / Unknown 03/22/2025 9:45 AM CDT 03/22/2025 9:58 AM CDT Rajesh Aleman MD HEMATOLOGY ORDERABLES Final Result [facility] CLIA # [id number] [address] [place] [address] * D-DIMER (03/22/2025 9:45 AM CDT) Pathologist [facility] D-DIMER QUANT 0.46 <0.50 ug/mL FEU 03/22/2025 10:21 AM CDT [facility] Blood Venipuncture / Unknown 03/22/2025 9:45 AM CDT 03/22/2025 9:58 AM CDT [facility] - 03/22/2025 10:21 AM CDT D-Dimer assay cutoff value for exclusion of DVT and/or PE is <0.50 ug/mL FEU. As D-Dimer levels increase naturally with age, age stratification for patients over 50 is potentially more appropriate in determining whether a patient should undergo further evaluation for DVT and/or PE than a general cutoff of 0.50 ug/mL FEU. Clinical consideration is recommended. Age Stratified Cutoff Values: 50-60 years: 0.50-0.60 ug/mL FEU 61-70 years: 0.61-0.70 ug/mL FEU 71-80 years: 0.71-0.80 ug/mL FEU us Rajesh Aleman MD HEMATOLOGY ORDERABLES Final Result [facility] CLIA # [id number] [address] [place] [id number] * TSH (03/22/2025 9:45 AM CDT) Pathologist [facility] TSH 2.54 0.27 - 4.20 uIU/mL 03/22/2025 10:26 AM CDT [facility] Blood Venipuncture / Unknown 03/22/2025 9:45 AM CDT 03/22/2025 9:58 AM CDT Rajesh Aleman MD CHEMISTRY ORDERABLES Final Result Performing Organization Address [facility] Co de Phone Number [facility] # [id number] [address] [place] [address] * (ABNORMAL) BRAIN NATRIURETIC PEPTIDE, BNP OR PROBNP (03/22/2025 9:45 AM CDT) [facility] PROBNP, N TERMINAL 4,659(H) 0 - 125 pg/mL 03/22/2025 10:26 AM CDT [facility] Comment: INTERPRETIVE COMMENT based on diagnosis: Diagnostic NT pro-BNP cutoffs for Heart Failure in the absence of renal failure is suggested for the following ranges <75 years: <125 pg/mL >=75 years: <450 pg/mL Exclusionary rule out cut-point for Acute Decompensated Heart Failure(ADHF) All ages: <300 pg/mL Diagnostic NT pro-BNP cutoffs for Acute Decompensated Heart Failure(ADHF) in the absence of renal failure is suggested for the following ages <50 years: > 450 pg/mL 50-75 years: > 900 pg/mL >75 years: >1800 pg/mL Blood Venipuncture / Unknown 03/22/2025 9:45 AM CDT 03/22/2025 9:58 AM CDT us Rajesh Aleman MD CHEMISTRY ORDERABLES Final Result Performing Organization Address City/[facility]/ZIP Co de Phone Number [id number] [address] [place] [phone] from Last 3 Months Insurance [facility] [facility] MEDICAID RX [employer] Advance Directives For more information, please contact: [phone] * Full Code (Latest Code Status on File) Date Activated Date Inactivated Comments 03/23/2025 4:47 PM 03/25/2025 5:14 PM
--- OUTSIDE RECORDS SUMMARY | 2025-04-28 08:17 | XMS_ITS | Encounter Summary ---
Author Organization [facility] Address [address] [place] [address] Care Team Providers Care Boiler Fireman Name Role Phone Unavailable Primary Care Provider Unavailabl e Encounter Details Date Type Department Care Team (Late st Contact Info) Description 04/21/2025 External Device Data [place] ABSTRACTION Provider, Abstract NO ADDRESS ON FILE Social History Tobacco Use Types Packs/Day Years Used Date Smoking Tobacco: Every Day Cigars Smokeless Tobacco: Former Quit: 07/09/2007 Alcohol Use Standard Drinks/Week Comments Never 0 (1 standard drink = 0.6 oz pur e alcohol) Feeling Safe Answer Date Recorded Are you in a relationship wi th someone who hurts you emotionally and/or physically? 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 [address] [place] [phone] Celestino Lanza MBBS [address] [place] [phone] Dilma Leon, BIA [address] [place] [phone] documented as of this encounter Visit Diagnoses Not on filedocumented in this encounter
--- OUTSIDE RECORDS SUMMARY | 2025-04-28 08:17 | XMS_ITS | Patient Health Record ---
Author Organization [facility] Address [address] [place] [address] Support Name Relationship Address Phone Matt Flores Guarantor Unknown [phone] Reason For Referral No Information Plan Of Treatment No Information
--- OUTSIDE RECORDS SUMMARY | 2025-04-28 08:17 | XMS_ITS | Clinical Summary ---
Author Organization [facility] Address [address] [place] [address] Phone Care Team Providers Care Lockstitch Sleeve Maker Name Role Phone Gomez Kelly DO Primary Care Provider [phone] Allergies Active Allergy Reactions Criticality Noted Date Comments Morphine Itching Low 08/02/2013 Medications No known medications Active Problems Problem Noted Date Diagnosed Date HCAP (healthcare-associated pneumonia) 4 Pleural effusion 08/12/2013 Chest pain 08/12/2013 Intra abdominal hemorrhage 08/12/2013 Overview (08/12/2013): Retropancreatic 08/02/2013 Anemia 08/12/2013 Elevated transaminase level 08/12/2013 Peripancreatic fluid collection 08/12/2013 Open wound of abdominal wall, anterior , now patricia sed. 08/08/2013 Retroperitoneal hematoma 08/02/2013 Acute blood loss anemia 08/02/2013 Immunizations Immunization Administration Dates Next Due (PNEUMOVAX 23)(50 YRS UP) PN EUMOCOCCAL POLYSACCHARIDE (PPV23) 0.5 ML, IM 08/09/2013 Influenza Vaccine Split 3+ Yrs IM 08/09/2013 Family History Medical History Relation Name Comments Healthy Daughter 1 Healthy Daughter 2 Relation Name Status Comments Daughter 1 Alive Daughter 2 Alive Social History Tobacco Use Types Packs/Day Years Used Date Smoking Tobacco: Every Day Cigarettes 0.5 2 Smokeless Tobacco: Former Chew Quit: 07/09/2007 Alcohol Use Standard Drinks/Week Comments Yes 0 (1 standard drink = 0.6 oz pur e alcohol) OCCASIONAL Sex and Gender Information Value Date Recorded Sex Assigned at Not on file 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 Gender Identity Not on file Sexual Orientation Not on file Occupation Industry Job Start Date Job End Date Not on file Not on file Not on file Not on file Last Filed Vital Signs Vital Sign Reading Time Taken Comments Blood Pressure 159/84 06/27/2018 7:05 PM METAL FRAMER Pulse 84 09/15/2013 1:13 PM CDT Temperature 36.9 C (98.4 F) 06/27/2018 7:05 PM METAL FRAMER Respiratory Rate 20 06/27/2018 7:05 PM METAL FRAMER Oxygen Saturation 99% 06/27/2018 7:05 PM METAL FRAMER Inhaled Oxygen Concentration - - Weight 74.8 kg (165 lb) 06/27/2018 4:22 PM METAL FRAMER Height 180.3 cm (5' 11 ) 06/27/2018 4:22 PM METAL FRAMER Body Mass Index 23.01 06/27/2018 4:22 PM METAL FRAMER Plan of Treatment Health Maintenance Due Date Last Done Comments [...] 2025 08/09/2013 Medical Devices Implanted Type Area Geographical Historian Device Identifier Shelf Expiration Date Model / Serial / Lot Barrier Seprafilm 5x6in 4301-02 - [id number] Implanted:Qty: 1 on 08/04/2013 by Shane Todd MD at [facility] Adhesion Barrier N/A: Abdomen GENZYME- BIOSURG 02/06/2015 [id number] -[id number] / / [id number] Barrier Seprafilm 5x6in 4301-02 - [id number] Implanted:Qty: 1 on 08/04/2013 by Shane Todd MD at [facility] Adhesion Barrier GENZYME- BIOSURG 02/06/2015 [id number] -[id number] / / [id number] Advance Directives For more information, please contact: [phone] * Full Code (Latest Code Status on File) Date Activated Date Inactivated Comments 08/12/2013 7:33 AM 08/15/2013 11:55 AM * Full Code Date Activated Date Inactivated Comments 08/03/2013 4:29 AM 08/09/2013 2:24 PM * Full Code Date Activated Date Inactivated Comments 08/02/2013 5:45 AM 08/03/2013 4:29 AM Care Teams Lockstitch Sleeve Maker Relationship Specialty Start Date End Date Gomez Kelly DO [address] [place] [address] PCP - General Family Practice 08/12/13
--- OUTSIDE RECORDS SUMMARY | 2025-04-28 08:17 | XMS_ITS | Patient Health Record ---
Author Organization [facility] Address [address] [place] [address] Support Name Relationship Address Phone Matt Flores Guarantor Unknown [phone] Reason For Referral No Information Plan Of Treatment No Information
[2025-04-28 08:42] LABS: Hematocrit 45.8 % (37-53); Hemoglobin 15.20 g/dL (11.27-16.99); Mean Corpuscular HGB Conc 33.2 g/dL (30-55); Mean Corpuscular Hemoglobin 31.2 pg (27-33); Mean Corpuscular Volume 94.0 fl (82-101); Nucleated Red Blood Cells % 0 %; Platelet Count 291 10^3/cmm (157-399); Red Blood Count 4.87 10^6/uL (3.85-5.65); White Blood Count 9.76 10^3/uL (3.29-11.43)
[2025-04-28 09:01] LABS: Troponin(5th) Baseline 52 ng/L (0-15)
--- NOTE | 2025-04-28 09:04 | PC.PHAR ---
Patient states he took all medications on Sunday adn on Sunday04/27/25 doctor increased his Furosemide and Potassium . Patient took increased dose on Sunday and took his Eliquis and Metoprolol once in the evening.
[2025-04-28 09:08] LABS: Alanine Aminotransferase 57 U/L (0-41); Albumin Level 3.9 g/dL (3.5-5.2); Alkaline Phosphatase 107 U/L (40-130); Anion Gap 17.8 (5-19); Aspartate Amino Transferase 20 U/L (0-40); Blood Urea Nitrogen 21 mg/dL (6-20); Calcium 9.1 mg/dL (8.5-10.5); Carbon Dioxide 23 mmol/L (22-29); Chloride 101 mmol/L (98-107); Creatinine Clr Calc Pharmacy 90.3051; Globulin 1.9 g/dL (1.3-4.6); Glucose 110 mg/dL (65-115); NT Pro B Type Natriuretic Pept 10462 pg/mL (0-125); Osmolality Calculated 288 mOsm/kg (285-295); Potassium 4.8 mmol/L (3.5-5.1); Sodium 137 mmol/L (136-145); Total Protein 5.8 g/dL (6.6-8.7)
[2025-04-28] MEDS: FUROsemide 10 mg/mL SDV 10mL 60 MG IVP (11:09)
--- NOTE | 2025-04-28 11:33 | ECG_ITS ---
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 Measurements Intervals [place] Rate: 84 P: 152 LA: 128 QRS: 70 QRSD: 152 T: 196 QT: 413 QTc: 489 Interpretive Statements ECTOPIC ATRIAL RHYTHM LEFT ATRIAL ENLARGEMENT [-0.15mV P-WAVE IN V1/V2] LEFT BUNDLE BRANCH BLOCK [120+ ms QRS DURATION, 80+ ms Q/S IN V1/V2, 85+ ms R IN I/aVL/V5/V6] LATERAL MYOCARDIAL INFARCTION , OF INDETERMINATE AGE [40+ ms Q WAVE AND/OR ST/T ABNORMALITY IN I/aVL/V5/V6] Compared to ECG 04/28/2025 08:08:44 Ectopic atrial rhythm now present Myocardial infarct finding now present Sinus rhythm no longer present Electronically Signed On 04-28-2025 19:38:10 CDT by Lazaro Lemus M.D. [email or web address]
[2025-04-28 11:58] LABS: Troponin 5 2HR 50.36 ng/L (0-15)
[2025-04-28 12:00] LABS: Troponin 5 2HR Delta -1.64 ABS# (0-10)
--- NOTE | 2025-04-28 14:14 | ECG_ITS ---
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 Measurements Intervals [place] Rate: 88 P: 81 RI: 130 QRS: 97 QRSD: 158 T: 269 QT: 426 QTc: 518 Interpretive Statements SINUS RHYTHM LEFT ATRIAL ENLARGEMENT [-0.15mV P-WAVE IN V1/V2] BORDERLINE RIGHT AXIS DEVIATION [QRS AXIS > 90] INTRAVENTRICULAR CONDUCTION DELAY [130+ ms QRS DURATION] Compared to ECG 04/28/2025 11:33:53 Intraventricular conduction delay now present Ectopic atrial rhythm no longer present Left bundle-branch block no longer present Myocardial infarct finding no longer present Electronically Signed On 04-28-2025 19:36:38 CDT by Lazaro Lemus M.D. [id number] [id number]
[2025-04-28 14:53] LABS: Troponin 5 6HR 41.22 ng/L (0-15)
[2025-04-28 14:54] LABS: Troponin 5 6HR Delta -10.78 ng/L (0-12)
--- NOTE | 2025-04-28 15:34 | P.HP_ITS ---
Providers/Chief Complaint 2 Admitting Physician: Yas Ruiz MD Primary Care Provider: Gomez Kelly DO Chief Complaint: Chest Pain History of Present Illness Matt Flores is a 54 year old male with medical history significant for ischemic cardiomyopathy who had recently underwent cardiac catheterization 2 weeks ago at [facility] where patient was noted to have no active coronary disease but was noted with ejection fraction of 20. Patient also had at that time it left ventricular thrombus for which he had been started on Eliquis. Today patient started having shortness of breath. He went to the emergency room for further evaluation and was noted to be in heart failure BNP was noted to be 10,000 in the setting of EF of 20,000. Patient was admitted troponins were unremarkable I was called to evaluate patient for admission. You are very young mickey 54 years old. I have seen and evaluated patient patient had received 60 mg of IV Lasix in the emergency room I continued with 40 mg of IV Lasix twice daily. I ordered an echocardiogram to follow through with care I did not consult to cardiology at this time there is nothing to consult workup been done 2 weeks ago. And not surprising that ejection fraction of 20% patient is presenting with heart failure. I did not hear the patient talk about LifeVest again that might be where the patient may come in with cardiology concerning LifeVest patient is at risk for arrhythmia leading to . I will be consulting the cardiology at this time regarding this much very low ejection fraction for what they need to do concerning LifeVest defibrillator or what ever the guidelines may be or treat with the medication and see how well he improves but again for the interval patient stands the risk of dying a sudden from arrhythmia. Review of Systems 2 Narrative: System review upon 10 organ review where only remarkable for cardiovascular system with heart failure Medications/Allergies Home Medications ?Medication ?Instructions ?Recorded ?Confirmed ?Last Taken ?Type apixaban 5 mg tablet 5 mg PO BID blood clot #1 ta b 03/27/25 04/28/25 04/27/25 20:00 Rx aspirin 81 mg tablet 81 mg PO DAILY #1 tab 04/28/25 04/26/25 Rx atorvastatin 40 mg tablet (Lipitor) 40 mg PO DAILY #1 tab 03/27/25 04/28/25 04/26/25 Rx empagliflozin 10 mg tablet 10 mg PO DAILY #1 tab 03/2704/28/2504/26/25 Rx losartan 25 mg tablet 25 mg PO DAILY #1 tab 04/28/25 04/26/25 Rx metoprolol tartrate 25 mg tablet 25 mg PO BID #1 tab 0 03/27/25 04/28/25 04/27/25 19:00 Rx furosemide 40 mg tablet (Lasix) 80 mg (2 x 40 mg) PO D AILY #60 tabs 04/27/25 04/28/25 04/27/25 Rx potassium chloride 10 mEq 20 meq (2 x 10 mEq) PO DAILY #60 04/27/25 04/28/25 04/27/25 Rx capsule,extended release caps Allergies Allergy/AdvReac Type Severity Reaction Status Date / Time morphine Allergy ALGY-Hives Verified 04/28/25 08:17 PFSH Acute 2 PFSH: Social History Smoking and tobacco/nicotine status: never used tobacco/nicotine Adopted: No Housing: House Marital status: Number of children: 2 Highest education level completed: 12th Grade, No Diploma service: No Current occupational status: disabled Current gender identity: Male Vitals/I&O/Wt Last Vital Signs Temp 97.8 F 04/28/25 08:09 Pulse 78 04/28/25 10:00 Resp 20 H 04/28/25 10:00 BP 144/97 04/28/25 10:00 Pulse Ox 96 04/28/25 10:00 O2 Del Method Room Air 04/28/25 08:09 04/28/25 04/28/25 04/28/25 06:59 14:59 22:59 Intake Total 0 / 0 Balance 0 / 0 Weight last 48 hrs Weight 77.111 kg Physical Exam 2 Narrative: Generally patient is restful in bed at my evaluation in his room 112 and stepdown unit patient was pleasant and answers all questions appropriately no sign of confusion denies any chest pain verbalized just shortness of breath that made him go to the emergency room for further evaluation. HEENT normocephalic/atraumatic neck neck is supple cardiovascular heart rate is regular lungs are pretty much clear abdomen soft nontender nondistended unremarkable extremities are intact no edema has good pulses neurology has no focality lab studies lab studies reviewed and noted. Data 04/28/25 08:35 04/28/25 08:35 A&P Assessment and plan 1. Mural thrombus of left ventricle: 2. Acute on chronic systolic congestive heart failure: 3. Acute thrombus of left ventricle: 4. Acute on chronic systolic congestive heart failure: 5. Murmur, cardiac: 6. Hypertension: 7. Fatigue: Plan: Dyspnea with no hypoxemia - Evaluation significant for heart failure acute on chronic systolic dysfunction heart failure - Admit to stepdown unit for diuresis - Patient has good renal function - Keep medication renal friendly and diuresis with caution - Patient is on high-dose Lasix at home - Patient at this time receiving 40 mg IV Lasix twice daily - On angiotensin receptor idalmis with losartan 25 mg once daily - Patient to be on daily weight - Strict I and O's, patient to have at least minimum 500 mL negative fluid balance - Follow-up with echo and cardiology recommendations Left ventricular thrombus found 2 weeks ago on cardiac catheterization at [facility] - Patient is on Eliquis please continue medication while in house Chronic stable illness such as hypertension/hyperlipidemia - Continue home medication Heart medication - Continue patient beta-blockers angiotensin receptor idalmis GI DVT prophylaxis in place - PDMP PDMP Reviewed: Last Reviewed 04/28/25 21:08 by Yas Ruiz MD Attestations 2 Medical Necessity Statement*: Patient is in an overt heart failure will need at least 2 midnights for care optimization Coding Level of Care Code 72512 Diagnoses Mural thrombus of left ventricle I51.3 Acute on chronic systolic congestive heart failure I50.23 Acute thrombus of left ventricle I24.0 Murmur, cardiac R01.1 Hypertension I10 Fatigue R53.83 Time Spent (min) 60
--- NOTE | 2025-04-28 15:58 | PC.NURSE ---
2000 mls urine output
[2025-04-28] MEDS: FUROsemide 10 mg/mL SDV 4mL 40 MG IVP (17:15)
[2025-04-29] VITALS (56 sets, daily range): BP systolic 120–162; BP diastolic 79–102; PULSE 83–102; RESP 11–29; TEMP 36.4–36.7; O2SAT 81–98
[2025-04-29 03:57] LABS: Alanine Aminotransferase 51 U/L (0-41); Albumin Level 3.8 g/dL (3.5-5.2); Alkaline Phosphatase 115 U/L (40-130); Anion Gap 18.3 (5-19); Aspartate Amino Transferase 20 U/L (0-40); Blood Urea Nitrogen 27 mg/dL (6-20); Calcium 9.0 mg/dL (8.5-10.5); Carbon Dioxide 25 mmol/L (22-29); Chloride 102 mmol/L (98-107); Creatinine Clr Calc Pharmacy 75.2543; Globulin 2.3 g/dL (1.3-4.6); Glucose 105 mg/dL (65-115); Osmolality Calculated 297 mOsm/kg (285-295); Potassium 4.3 mmol/L (3.5-5.1); Sodium 141 mmol/L (136-145); Total Protein 6.1 g/dL (6.6-8.7)
[2025-04-29] MEDS: FUROsemide 10 mg/mL SDV 4mL 40 MG IVP ×2 (04:14→16:36)
--- NOTE | 2025-04-29 07:20 | P.CONIM_ITS ---
Providers/Reason For Consult 2 Consulting Physician/Specialty*: ASAEL Lemus MD/cardiology Reason for Consult*: Patient was cardiomyopathy and congestive heart failure Requesting Physician: Dr. Ruiz/Dr. Johnston Attending Physician: Yas Ruiz MD Primary Care Provider: Gomez Kelly DO History of Present Illness History of Present Illness Matt Flores is a 54 year old male, is admitted to hospital through the emergency room where he presented with a progressive shortness of breath. He was found to be in congestive heart failure. He is known to have an LV ejection fraction around 20%?. Cardiology consult is requested for further cardiac evaluation recommendations. This patient apparently has been having shortness of breath for the last 4 weeks or so. Couple of weeks ago, he was admitted to the [facility] in [place] with the heart failure symptoms. According to him, he underwent cardiac catheterization and was found to have no blockages?. He had an LV thrombus?. He was placed on Eliquis. He has a history of untreated, severe hypertension for the last 3 years or so. He never bothered to go to the doctor or take any medication for this. At times his blood pressure has been in the 240 /140. He never had any chest pain. Also has a history of smoking for the last 15 years or so. Usually smokes cigars-1 cigar a day . No history for diabetes.? History of dyslipidemia. He was sent home from [place] with medications. According the patient, he did not take all of the medications. He went to the [facility] with shortness of breath. There he had an EKG and was advised to come to the [facility] emergency room. According the patient, he waited for 4 hours or so in the waiting area. At that time, he got frustrated and signed out AMA. Last evening, he again became very short of breath and for that reason, he came back to the emergency room and got admitted. He never had any chest pain. No fever or chills. Review of Systems 2 Narrative: CONSTITUTIONAL: No fever or chills. EYES: No blurring of vision or other visual disturbances lately. ENT: No hoarseness of voice, auditory disturbances or sore throat. CARDIOVASCULAR: As mentioned above. RESPIRATORY: Shortness of breath as mentioned above GASTROINTESTINAL: No hematemesis or melena. GENITOURINARY: No dysuria or hematuria. INTEGUMENTARY: No skin rashes or history of skin cancer. NEURO: No transient ischemic attacks or amaurosis. PSYCHIATRIC: No history of psychosis or major depression. HEMATOLOGIC: No bleeding disorders or significant anemia. ENDOCRINE: No history of polyuria or polydipsia. MUSCULOSKELETAL: No recent joint pain or swelling. ALLERGY/IMMUNOLOGY: As mentioned above. Medications/Allergies Home Medications ?Medication ?Instructions ?Recorded ?Confirmed ?Last Taken ?Type apixaban 5 mg tablet 5 mg PO BID blood clot #1 ta b 03/27/25 04/28/25 04/27/25 20:00 Rx aspirin 81 mg tablet 81 mg PO DAILY #1 tab 04/28/25 04/26/25 Rx atorvastatin 40 mg tablet (Lipitor) 40 mg PO DAILY #1 tab 03/27/25 04/28/25 04/26/25 Rx empagliflozin 10 mg tablet 10 mg PO DAILY #1 tab 03/2704/28/25 04/26/25 Rx losartan 25 mg tablet 25 mg PO DAILY #1 tab 04/28/25 04/26/25 Rx metoprolol tartrate 25 mg tablet 25 mg PO BID #1 tab 0 03/27/25 04/28/25 04/27/25 19:00 Rx furosemide 40 mg tablet (Lasix) 80 mg (2 x 40 mg) PO D AILY #60 tabs 04/27/25 04/28/25 04/27/25 Rx potassium chloride 10 mEq 20 meq (2 x 10 mEq) PO DAILY #60 04/27/25 04/28/25 04/27/25 Rx capsule,extended release caps Allergies Allergy/AdvReac Type Severity Reaction Status Date / Time morphine Allergy ALGY-Hives Verified 04/28/25 08:17 Current Medications Generic Name Dose Route Start Last Admin Trade Name Freq PRN Reason Stop Dose Admin Docusate Sodium 100 mg 04/28/25 17:00 04/29/25 04:18 Docusate Sodium 100 Mg Capsule PO Not Given BID PARAG Furosemide 40 mg 04/28/25 16:00 04/29/25 04:14 Furosemide 10 Mg/Ml Sdv 4ml IVP 40 mg Q12H PARAG Administration Senna 17.2 mg 04/28/25 21:00 04/28/25 20:05 Sennosides 8.6 Mg Tablet PO Not Given BEDTIME PARAG PFSH Acute 2 PFSH: Social History Smoking and tobacco/nicotine status: never used tobacco/nicotine Adopted: No Housing: House Marital status: Number of children: 2 Highest education level completed: 12th Grade, No Diploma service: No Current occupational status: disabled Current gender identity: Male Vitals/I&O/Wt Last Vital Signs Temp 97.6 F 04/29/25 07:16 Pulse 92 04/29/25 07:16 Resp 14 04/29/25 07:16 BP 153/102 04/29/25 07:16 Pulse Ox 96 04/29/25 07:16 O2 Del Method Room Air 04/29/25 07:16 04/28/25 04/29/25 04/29/25 22:59 06:59 14:59 Output Total 1100 / 1100 Balance -1100 / -1100 Weight last 48 hrs Weight 160 lb 4.8 oz Weight 170 lb Physical Exam 2 Narrative: GENERAL: The patient is alert and oriented times three. Not in any acute distress. HEENT: No significant pallor, icterus or lymphadenopathy.Oral cavity: There are no mucous membrane lesions. NECK: Trachea appears to be central. No masses noted. No JVD or thyromegaly appreciated. RESPIRATORY: Chest is symmetrical. No intercostals muscle retraction or any accessory muscle activation. There is no chest wall tenderness. Breath sounds are heard bilaterally. No rales or rhonchi heard. No evidence of any consolidation. BREASTS: Deferred. HEART: The heart sounds are normal. No S3 or S4. Short systolic murmur at the lower sternal border. No diastolic murmurs. No pericardial rub ABDOMEN: No vessel pulsations or distention. No tenderness. No organomegaly appreciated. Bowel sounds are normally heard. : Deferred. RECTAL: Deferred. LYMPHATIC: No lymphadenopathy noted in the neck. EXTREMITIES: No edema or cyanosis. No clubbing. MUSCULOSKELETAL: No acute joint deformities or swelling SKIN: There are no significant rashes or ecchymosis NEUROPSYCHIATRIC: The patient is alert and oriented x3. Appears to be in a good mood. No tremors or rigidity noted. Data 04/28/25 08:35 04/29/25 03:00 Other Labs: Laboratory Last Values WBC 9.76 10^3/uL (3.29-11.43) 04/28/25 08:35 RBC 4.87 10^6/uL (3.85-5.65) 04/28/25 08:35 Hgb 15.20 g/dL (11.27-16.99) 04/28/25 08:35 Hct 45.8 % (37-53) 04/28/25 08:35 MCV 94.0 fl (82-101) 04/28/25 08:35 MCH 31.2 pg (27-33) 04/28/25 08:35 MCHC 33.2 g/dL (30-55) 04/28/25 08:35 RDW 14.5 % (12.1-15.1) 04/28/25 08:35 Plt Count 291 10^3/cmm (157-399) 04/28/25 08:35 MPV 10.6 fL (7.4-10.4) H 04/28/25 08:35 Neut % (Auto) 66.6 % 04/28/25 08:35 Lymph % (Auto) 24.2 % 04/28/25 08:35 Camas % (Auto) 6.5 % 04/28/25 08:35 Eos % (Auto) 1.8 % 04/28/25 08:35 Baso % (Auto) 0.7 % 04/28/25 08:35 Neut # (Auto) 6.50 10^3/uL (1.8-7.7) 04/28/25 08:35 Lymph # (Auto) 2.4 10^3/uL (0.8-4.8) 04/28/25 08:35 [place] # (Auto) 0.6 10^3/uL (0.2-0.9) 04/28/25 08:35 Eos # (Auto) 0.2 10^3/uL (0.0-0.8) 04/28/25 08:35 Baso # (Auto) 0.1 10^3/uL (0.0-0.1) 04/28/25 08:35 Nucleated RBC % (auto) 0 % 04/28/25 08:35 Nucleated RBCs # 0.0 /100WBC 04/28/25 08:35 Sodium 141 mmol/L (136-145) 04/29/25 03:00 Potassium 4.3 mmol/L (3.5-5.1) 04/29/25 03:00 Chloride 102 mmol/L (98-107) 04/29/25 03:00 Carbon Dioxide 25 mmol/L (22-29) 04/29/25 03:00 Anion Gap 18.3 (5-19) 04/29/25 03:00 BUN 27 mg/dL (6-20) H 04/29/25 03:00 Creatinine 1.2 mg/dL (0.7-1.2) 04/29/25 03:00 GFR Calculation 62.6 mL/min (90-130) L 04/29/25 03:00 Glucose 105 mg/dL (65-115) 04/29/25 03:00 Calculated Osmolality 297 mOsm/kg (285-295) H 04/29/25 03:00 Calcium 9.0 mg/dL (8.5-10.5) 04/29/25 03:00 Phosphorus 4.7 mg/dL (2.5-4.5) H 04/29/25 03:00 Total Bilirubin 0.6 mg/dL (0.15-1.2) 04/29/25 03:00 AST 20 U/L (0-40) 04/29/25 03:00 ALT 51 U/L (0-41) H 04/29/25 03:00 Alkaline Phosphatase 115 U/L (40-130) 04/29/25 03:00 Troponin T Baseline 52 ng/L (0-15) H 04/28/25 08:35 Troponin T 120 Minute 50.36 ng/L (0-15) H 04/28/25 11:14 Delta Troponin T -1.64 ABS# (0-10) L 04/28/25 11:14 Troponin T Hi Sens 6Hr 41.22 ng/L (0-15) H 04/28/25 14:30 Troponin T Hi Sens 6Hr Delta -10.78 ng/L (0-12) L 04/28/25 14:30 NT-Pro-B Natriuret Pep 00894 pg/mL (0-125) H 04/28/25 08:35 Total Protein 6.1 g/dL (6.6-8.7) L 04/29/25 03:00 Albumin 3.8 g/dL (3.5-5.2) 04/29/25 03:00 Globulin 2.3 g/dL (1.3-4.6) 04/29/25 03:00 EKG 1: My Interpretation: Normal sinus rhythm with possible left atrial enlargement. Nonspecific IVCD. Other data: CXR 1. There are no acute chest findings. 2. Background of emphysema, mild bronchiectasis and pulmonary fibrosis. 3. Strandy opacities in the left upper hemithorax and lung bases most probably represents atelectasis versus parenchymal or pleural scarring. 4. Probable tiny bilateral pleural effusions. A&P Assessment and plan 1. Acute on chronic systolic congestive heart failure: Patient has class III heart failure symptoms. Need to optimize the heart failure medications. I may start him on a GDMT including Entresto, spironolactone, beta-idalmis, Jardiance. The losartan may be discontinued at this point. 2. Nonischemic congestive cardiomyopathy: Echocardiogram revealed evaluate LV function. The LV ejection fraction is still severely reduced, patient may benefit from an external cardiac defibrillator. This was discussed the patient detail which is understood well and consented to proceed. 3. Primary hypertension: Blood pressure is still elevated. Need to optimize antihypertensive medications. 4. Mural thrombus of left ventricle: Patient is on long-term oral anticoagulation. This may be continued 5. Smoking addiction: Strongly advised to quit smoking Plan: Based on the clinical progress and the results of the above, further recommendations will be made I will be reviewing the medical records from [place]. Thank you for the opportunity to evaluate this patient and make these recommendations PDMP PDMP Reviewed: Not Reviewed Consult Attestations 2 Medical Necessity Statement: Patient requires continued hospital stay for close monitoring and further management Coding Level of Care Code 18721 Diagnoses Acute on chronic systolic congestive heart failure I50.23 Heart failure chronicity: acute on chronic Heart failure type: systolic Nonischemic congestive cardiomyopathy I42.0 Primary hypertension I10 Hypertension type: primary hypertension Mural thrombus of left ventricle I51.3 Smoking addiction F17.200
--- NOTE | 2025-04-29 07:24 | USCV_ITS ---
Matt Flores Age: 54 Gender: M : 1970 Exam Date: 04/29/2025 14:14 Ordering Phys: Lazaro Lemus MD ([email or web address]) Technologist: Exam Location: [facility] [place] Indication: ef BP: 135 / 84 HR: 78 Rhythm: Sinus Technical Quality: Adequate MEASUREMENTS (Male / Female) Normal Values 2D ECHO LV Diastolic Diameter PLAX 5.9 cm 4.2 - 5.9 / 3.9 - 5.3 cm IVS Diastolic Thickness 1.5 cm 0.6 - 1.0 / 0.6 - 0.9 cm IVS Systolic Thickness 1.7 cm LVPW Diastolic Thickness 1.8 cm 0.6 - 1.0 / 0.6 - 0.9 cm LVPW Systolic Thickness 1.8 cm LVOT Diameter 2.0 cm LV Ejection Fraction 2D Teich 14.1 % LV Ejection Fraction MOD 4C 15.1 % LV Ejection Fraction MOD 2C 27.8 % LV Ejection Fraction 2C AL 29.1 % LA Diameter 5.0 cm RA Systolic Volume 4C AL 88.4 ml RA Systolic Volume 4C MOD 88.7 ml Aorta at Sinotubular Diameter 2.7 cm IVC Diameter 1.8 cm M-MODE LA Ao Ratio MM 1.4 AV Cusp Separation MM 2.5 cm DOPPLER AV Peak Velocity 118.0 cm/s LVOT Peak Velocity 44.0 cm/s AV Area Cont Eq vti 1.6 cm squared AV Area Cont Eq pk 1.2 cm squared MV Peak Velocity 85.0 cm/s MV Area PHT 11.8 cm squared Mitral E to A Ratio 1.2 TV Peak Velocity 246.0 cm/s TR Peak Velocity 288.0 cm/s TR Peak Gradient 33.2 mmHg TV Peak E Velocity 80.0 cm/s PV Peak Velocity 120.0 cm/s FINDINGS Left Ventricle Severe diffuse hypokinesia of the left ventricle with an ejection fraction of 15 to 20%. Mildly dilated LV cavity Right Ventricle Possibly normal RV size and ejection fraction Right Atrium Mildly increased right atrial size. Left Atrium Mildly increased left atrial size. IA Septum Appears to be intact Mitral Valve Thickened mitral valve. Mild mitral valve regurgitation. Aortic Valve No gross abnormalities noted Tricuspid Valve Trace tricuspid valve regurgitation. Pulmonic Valve Not visualized well Pericardium No pericardial effusion. Aorta Normal aortic annulus size. IVC Normal inferior vena cava. CONCLUSIONS Severe diffuse hypokinesia of the left ventricle with an ejection fraction of 15 to 20%. Mildly dilated LV cavity. Possibly normal RV size and ejection fraction. Mild biatrial enlargement Thickened mitral valve. Mild mitral valve regurgitation. Trace tricuspid valve regurgitation. Estimated pulmonary artery peak systolic pressure 36 mm of Hg. There is no pericardial effusion. There are no intracardiac masses. No similar previous studies are available for comparison Dr Lazaro Lemus MD [facility] (Electronically Signed) Final Date: 29 April 2025 20:21 S
--- NOTE | 2025-04-29 07:38 | PC.NURSE ---
Dr. Lemus is currently in patients room and asked nursing to enter [place] 24- BID.
--- NOTE | 2025-04-29 09:19 | PC.CHAP ---
Pastoral Care Encounter/Spiritual Assessment Type of Contact [] Declined temple marker visit [] Patient/Family/Request visit [] Outpatient visit [] Follow-up visit [] Physician referral [] Code/Alert [x] Routine visit [] Staff referral [] Actively dying [] Patient sleeping [x] Family support [] [] Out of room [] Palliative care [] [] Receiving care in room [] Pre-surgical visit [] Trauma [] Long length of stay [] ICU visit [] Other: Relational/Emotional Strength [x] Patient feels connected with others/family/visitors/staff [] Distress [] Loneliness/isolation [] Abandonment Spirituality of Patient [x] Person of Jessy [] Attends Presybeterian of their Jessy [x] Believes in Prayer [] Reads Bible or Restorationism materials [] There are Spiritual issues to be addressed Cement Tile Maker Interventions [x] Prayer [x] Active listening [] Non-anxious presence [x] Spiritual/emotional support [] Crisis/trauma care [] Spiritual counseling [] Bereavement support [] Provided bereavement packet [] Provided Bible/devotional materials [] Provided toy/stuffed animal, coloring book to patient or family member [] Provided Communion [] Anointing/[place] [] Salvation [x] Completed spiritual assessment [] Other: Impact on Illness or Injury [] Angry [] Fearful [] Anxious [] Often cries [] Exhaustion [] Unable to work [] Unable to attend hindu [] Unable to walk/stand [] Unable to read [] Unable to drive [] Unable to eat/drink [] Unable to sleep [] Unable to be with family [] Patient intubated [] Other: Summary Time spent with patient 5 min
--- NOTE | 2025-04-29 13:24 | P.PN_ITS ---
Subjective 2 Subjective: The patient was seen in the morning, no complaints at the moment At room air and no signs of distress Vitals/I&O/Wt Last Vital Signs Temp 98.1 F 04/29/25 11:27 Pulse 88 04/29/25 11:27 Resp 24 H 04/29/25 11:27 BP 135/84 04/29/25 11:27 Pulse Ox 94 04/29/25 11:27 O2 Del Method Room Air 04/29/25 07:16 04/28/25 04/29/25 04/29/25 22:59 06:59 14:59 Intake Total 240 / 240 Output Total 1100 / 1100 1000 / 1000 Balance -1100 / -1100 -760 / -760 Weight last 48 hrs Weight 71.668 kg Weight 72.711 kg Weight 77.111 kg Physical Exam 2 Narrative: General: Alert and oriented, lying comfortably without any distress HEENT: Normocephalic, atraumatic, grossly unremarkable exam Cardio: normal rate rhythm, normal S1-S2 without any murmurs, rubs, or gallops and JVD normal Respiratory: normal vascular breathing on auscultation without any wheezes, stridor, rhonchi GI: Abdomen soft, nontender, nondistended, normoactive bowel sounds present all 4 quadrants, Neuro: intact cranial nerves motor and sensory and cerebellar/coordination function without any focal neurological deficit Behavior: Appropriate and cooperative Extremities: Adequate palpable pulses, trace pedal edema Skin: grossly unremarkable exam Data 04/28/25 08:35 04/29/25 03:00 A&P Assessment and plan 1. Acute on chronic systolic congestive heart failure: Patient found to have reduced ejection fraction and class III heart failure symptoms. Patient started on GDMT including Entresto, spironolactone beta- idalmis and Jardiance. Losartan has been discontinued since the patient has to be started on losartan Lasix 40 mg IV twice daily to continue and later to switch to oral according to patient euvolemic status and clinical assessment 2. Nonischemic congestive cardiomyopathy: Patient has reduced LV function and as per cardiology will benefit from external cardiac defibrillator. The patient already informed by the telegraph and teletype operator and consented to proceed with it 3. Mural thrombus of left ventricle: To continue on apixaban long-term anticoagulation 4. Hypertension: Further medications for GDMT has been added including Farxiga 5 mg daily, metoprolol 25 twice daily, Entresto as well along with spironolactone. These medications may also contribute in optimizing the blood pressure, therefore to monitor blood pressure and if still required to add antihypertensive medications later on. Plan: - PDMP PDMP Reviewed: Not Reviewed Attestations 2 Medical Necessity Statement*: Patient will stay overnight for management of his acute congestive heart failure with GDMT Time Spent in Patient Care: 16 - 35 minutes (>than 50% of time sp ent in counselling and/or direct pt care on unit) . Other Attestations: Patient condition has been discussed at length with the patient/family, I have independently reviewed the chart labs imaging/diagnostics/EKG. the goals of care and code status with the patient/family/NOK/legal patient relations representative, and documented accordingly. The patient/family has been informed about the current condition and further plan of care. Agreed with the plan of care and understood without any language barrier. Every effort was made to ensure accuracy of engine hostler. Any obvious errors or omissions should be clarified with the author of the document. Coding Level of Care Code Acute Code for Chg Fwd Diagnoses Acute on chronic systolic congestive heart failure I50.23 Nonischemic congestive cardiomyopathy I42.0 Mural thrombus of left ventricle I51.3 Hypertension I10
--- NOTE | 2025-04-29 18:29 | ECG_ITS ---
[facility] Test Date: 2025-04-29 Pat Name: Matt Flores Department: Room: 112 Gender: Male Ssis Etl Developer: : 1970 Requested By: Candi Johnston Order Number: [id number] Damon MD: Lazaro Lemus M.D. Measurements Intervals [place] Rate: 75 P: 49 DE: 131 QRS: 41 QRSD: 156 T: 188 QT: 448 QTc: 503 Interpretive Statements SINUS RHYTHM POSSIBLE LEFT ATRIAL ENLARGEMENT [-0.1mV P-WAVE IN V1/V2] LEFT BUNDLE BRANCH BLOCK [120+ ms QRS DURATION, 80+ ms Q/S IN V1/V2, 85+ ms R IN I/aVL/V5/V6] Compared to ECG 04/28/2025 14:14:50 Left bundle-branch block now present Intraventricular conduction delay no longer present Electronically Signed On 04-29-2025 22:51:03 CDT by Lazaro Lemus M.D. [email or web address]
--- NOTE | 2025-04-29 18:43 | PC.NURSE ---
Patient told nursing staff that he was having chest pressure, not pain. Nursing asked him to rate his pressure and he said it is not pain it is pressure and I can't rate it on a scale of 1 to 10. Provider is messaged by charge nurse and an EKG is done.
[2025-04-30] VITALS (7 sets, daily range): BP systolic 116–160; BP diastolic 83–108; PULSE 76–90; RESP 12–27; TEMP 36–36.8; O2SAT 94–98
[2025-04-30 03:44] LABS: Hematocrit 52.6 % (37-53); Hemoglobin 17.90 g/dL (11.27-16.99); Mean Corpuscular HGB Conc 34.0 g/dL (30-55); Mean Corpuscular Hemoglobin 31.3 pg (27-33); Mean Corpuscular Volume 92.1 fl (82-101); Nucleated Red Blood Cells % 0 %; Platelet Count 309 10^3/cmm (157-399); Red Blood Count 5.71 10^6/uL (3.85-5.65); White Blood Count 11.11 10^3/uL (3.29-11.43)
[2025-04-30 04:06] LABS: Alanine Aminotransferase 37 U/L (0-41); Albumin Level 3.6 g/dL (3.5-5.2); Alkaline Phosphatase 117 U/L (40-130); Anion Gap 15.9 (5-19); Aspartate Amino Transferase 14 U/L (0-40); Blood Urea Nitrogen 25 mg/dL (6-20); Calcium 9.1 mg/dL (8.5-10.5); Carbon Dioxide 25 mmol/L (22-29); Chloride 102 mmol/L (98-107); Creatinine Clr Calc Pharmacy 87.7651; Globulin 2.6 g/dL (1.3-4.6); Glucose 109 mg/dL (65-115); Osmolality Calculated 293 mOsm/kg (285-295); Potassium 3.9 mmol/L (3.5-5.1); Sodium 139 mmol/L (136-145); Total Protein 6.2 g/dL (6.6-8.7)
[2025-04-30] MEDS: DAPAGLIFLOZIN 5 MG TABLET PO (04:53)
[2025-04-30] MEDS: FUROsemide 10 mg/mL SDV 4mL 40 MG IVP ×2 (04:53→16:30)
--- NOTE | 2025-04-30 09:28 | PM.PN ---
Subjective Medications: Medication Review Details: Current Medications Acetaminophen (Acetaminophen 325 Mg Tablet) 650 mg PO Q6H PRN PRN Reason: Mild/Mod Pain Or Temp >/= 101 Apixaban (Apixaban 5 Mg Tablet) 5 mg PO BID [facility] Last Admin: 04/30/25 04:53 Dose: 5 mg Aspirin (Aspirin 81 Mg Ec Tablet) 81 mg PO DAILY [facility] Last Admin: 04/30/25 04:53 Dose: 81 mg Atorvastatin Calcium (Atorvastatin 40 Mg Tablet) 40 mg PO DAILY [facility] Last Admin: 04/30/25 04:53 Dose: 40 mg Docusate Sodium (Docusate Sodium 100 Mg Capsule) 100 mg PO BID [facility] Last Admin: 04/30/25 04:54 Dose: Not Given Furosemide (Furosemide 10 Mg/Ml Sdv 4ml) 40 mg IVP Q12H [facility] Last Admin: 04/30/25 04:53 Dose: 40 mg Metoprolol Tartrate (Metoprolol Tartrate 25 Mg Tablet) 25 mg PO BID [facility] Last Admin: 04/30/25 04:54 Dose: 25 mg Nitroglycerin (Nitroglycerin 0.4 Mg Sublingual Tablet) 0.4 mg SUBLINGUAL Q5M PRN PRN Reason: CHEST PAIN Ondansetron HCl (Ondansetron 2 Mg/Ml Sdv 2 Ml) 4 mg IVP Q8H PRN PRN Reason: vomiting, or N/V if npo Sacubitril/Valsartan (Sacubitril/Valsartan 24-26 Mg Tablet) 1 each PO BID [facility] Last Admin: 04/30/25 04:53 Dose: 1 each Senna (Sennosides 8.6 Mg Tablet) 17.2 mg PO BEDTIME [facility] Last Admin: 04/29/25 22:31 Dose: Not Given Spironolactone (Spironolactone 25 Mg Tablet) 25 mg PO DAILY [facility] Last Admin: 04/30/25 04:54 Dose: 25 mg Vitals/I&O/Wt Last Vital Signs Temp 98.0 F 04/30/25 07:51 Pulse 76 04/30/25 07:51 Resp 25 H 04/30/25 07:51 BP 130/95 04/30/25 07:51 Pulse Ox 96 04/30/25 07:51 O2 Del Method Nasal Cannula 04/30/25 04:00 O2 Flow Rate 2 04/30/25 04:00 04/29/25 04/30/25 04/30/25 22:59 06:59 14:59 Intake Total 590 / 830 780 / 1610 Output Total 2400 / 3950 1300 / 5250 Balance -1810 / -3120 -520 / -3640 Weight last 48 hrs Weight 161 lb 3.2 oz Weight 158 lb Weight 160 lb 4.8 oz Physical Exam Narrative: GENERAL: The patient is alert and oriented times three. Not in any acute distress. HEENT: No significant pallor, icterus or lymphadenopathy.Oral cavity: There are no mucous membrane lesions. NECK: Trachea appears to be central. No masses noted. No JVD or thyromegaly appreciated. RESPIRATORY: Chest is symmetrical. No intercostals muscle retraction or any accessory muscle activation. There is no chest wall tenderness. Breath sounds are heard bilaterally. No rales or rhonchi heard. No evidence of any consolidation. BREASTS: Deferred. HEART: The heart sounds are normal. No S3 or S4. Short systolic murmur at the lower sternal border. No diastolic murmurs. No pericardial rub ABDOMEN: No vessel pulsations or distention. No tenderness. No organomegaly appreciated. Bowel sounds are normally heard. : Deferred. RECTAL: Deferred. LYMPHATIC: No lymphadenopathy noted in the neck. EXTREMITIES: No edema or cyanosis. No clubbing. MUSCULOSKELETAL: No acute joint deformities or swelling SKIN: There are no significant rashes or ecchymosis NEUROPSYCHIATRIC: The patient is alert and oriented x3. Appears to be in a good mood. No tremors or rigidity noted. Data 04/30/25 03:15 04/30/25 03:15 A&P Assessment and plan 1. Acute on chronic systolic congestive heart failure: Patient has class III heart failure symptoms. Need to optimize the heart failure medications. I may start him on a GDMT including Entresto, spironolactone, beta-idalmis, Jardiance. The losartan may be discontinued at this point. 2. Nonischemic congestive cardiomyopathy: Echocardiogram revealed evaluate LV function. The LV ejection fraction is still severely reduced, patient may benefit from an external cardiac defibrillator. This was discussed the patient detail which is understood well and consented to proceed. 3. Primary hypertension: Blood pressure is still elevated. Need to optimize antihypertensive medications. 4. Mural thrombus of left ventricle: Patient is on long-term oral anticoagulation. This may be continued 5. Smoking addiction: Strongly advised to quit smoking Plan: Based on the clinical progress and the results of the above, further recommendations will be made I will be reviewing the medical records from [place]. Thank you for the opportunity to evaluate this patient and make these recommendations PDMP PDMP Reviewed: Not Reviewed Coding Level of Care Code Acute Code for Chg Fwd Diagnoses Acute on chronic systolic congestive heart failure I50.23 Heart failure chronicity: acute on chronic Heart failure type: systolic Nonischemic congestive cardiomyopathy I42.0 Primary hypertension I10 Hypertension type: primary hypertension Mural thrombus of left ventricle I51.3 Smoking addiction F17.200
--- NOTE | 2025-04-30 09:57 | PC.NURSE ---
Per Dr Lemus an order for lifevest is ordered.
--- NOTE | 2025-04-30 13:06 | PM.DCS ---
Discharge Providers Date of Admission: 04/28/25 10:34 Date of Discharge: April 30, 2025 Attending Provider at Admission: Yas Ruiz MD Attending Provider at Discharge: Candi Johnston MD Primary Care Provider: Gomez Kelly DO Diagnoses at Discharge Discharge Diagnosis 1. Acute on chronic systolic congestive heart failure: 2. Nonischemic congestive cardiomyopathy: 3. Primary hypertension: 4. Mural thrombus of left ventricle: 5. Smoking addiction: Reason for Visit Reason for Visit: Chest Pain Brief History: as per the previous notes and the patient: Matt Flores is a 54 year old male with medical history significant for ischemic cardiomyopathy who had recently underwent cardiac catheterization 2 weeks ago at [facility] where patient was noted to have no active coronary disease but was noted with ejection fraction of 20. Patient also had at that time it left ventricular thrombus for which he had been started on Eliquis. The patient presented to the ER with shortness of breath and was found to have increased proBNP in the setting of reduced ejection fraction. The patient was placed on IV diuretics and further improved. Cardiology was consulted and echo was ordered. Hospital Course Hospital Course During patient hospital stay he was managed as a case of heart failure with reduced ejection fraction and fluid overload with diuretics. He was given GDMT and monitored. He remained stable over his stay. LifeVest arranged and to be discharged with cardio follow up. further management for anxiety also placed after discussing with the patient for psych as outpatient referral and alprazolam as needed at night for anxiety. Patient condition has been discussed at length with the patient/family, I have independently reviewed the chart labs imaging/diagnostics/EKG. the goals of care and code status with the patient/family/NOK/legal sales representative printing, and documented accordingly. The patient/family has been informed about the current condition and further plan of care. Agreed with the plan of care and understood without any language barrier. Every effort was made to ensure accuracy of manager secondary. Any obvious errors or omissions should be clarified with the author of the document. Physical Exam Narrative: General: Alert and oriented, lying comfortably without any distress HEENT: Normocephalic, atraumatic, grossly unremarkable exam Cardio: normal rate rhythm, normal S1-S2 without any murmurs, rubs, or gallops and JVD normal Respiratory: normal vascular breathing on auscultation without any wheezes, stridor, rhonchi GI: Abdomen soft, nontender, nondistended, normoactive bowel sounds present all 4 quadrants, Neuro: intact cranial nerves motor and sensory and cerebellar/coordination function without any focal neurological deficit Behavior: Appropriate and cooperative Extremities: Adequate palpable pulses, trace pedal edema Skin: grossly unremarkable exam Discharge Data Studies Completed and Pending Completed Studies During Hospitalization Category Date Time Status XR chest 1V portable [id number] Stat Exams 04/28/25 08:11 Completed CV. echo complete* [id number] Routine Ultrasound 04/29/25 07:24 Completed Pending at discharge Category Date Time Status Comprehensive Metabolic Panel AM LABS Lab 05/01/25 04:00 Ordered Phosphorus AM LABS Lab 05/01/25 04:00 Ordered Radiology Impressions Chest X-Ray 04/28/25 08:11 IMPRESSION: 1. There are no acute chest findings. 2. Background of emphysema, mild bronchiectasis and pulmonary fibrosis. 3. Strandy opacities in the left upper hemithorax and lung bases most probably represents atelectasis versus parenchymal or pleural scarring. 4. Probable tiny bilateral pleural effusions. Laboratory Results WBC 11.11 10^3/uL (3.29-11.43) 04/30/25 03:15 RBC 5.71 10^6/uL (3.85-5.65) H 04/30/25 03:15 Hgb 17.90 g/dL (11.27-16.99) H 04/30/25 03:15 Hct 52.6 % (37-53) 04/30/25 03:15 MCV 92.1 fl (82-101) 04/30/25 03:15 MCH 31.3 pg (27-33) 04/30/25 03:15 MCHC 34.0 g/dL (30-55) 04/30/25 03:15 RDW 14.4 % (12.1-15.1) 04/30/25 03:15 Plt Count 309 10^3/cmm (157-399) 04/30/25 03:15 MPV 10.2 fL (7.4-10.4) 04/30/25 03:15 Neut % (Auto) 61.0 % 04/30/25 03:15 Lymph % (Auto) 27.6 % 04/30/25 03:15 [place] % (Auto) 8.2 % 04/30/25 03:15 Eos % (Auto) 2.3 % 04/30/25 03:15 Baso % (Auto) 0.5 % 04/30/25 03:15 Neut # (Auto) 6.78 10^3/uL (1.8-7.7) 04/30/25 03:15 Lymph # (Auto) 3.1 10^3/uL (0.8-4.8) 04/30/25 03:15 [place] # (Auto) 0.9 10^3/uL (0.2-0.9) 04/30/25 03:15 Eos # (Auto) 0.3 10^3/uL (0.0-0.8) 04/30/25 03:15 Baso # (Auto) 0.1 10^3/uL (0.0-0.1) 04/30/25 03:15 Nucleated RBC % (auto) 0 % 04/30/25 03:15 Nucleated RBCs # 0.0 /100WBC 04/30/25 03:15 Sodium 139 mmol/L (136-145) 04/30/25 03:15 Potassium 3.9 mmol/L (3.5-5.1) 04/30/25 03:15 Chloride 102 mmol/L (98-107) 04/30/25 03:15 Carbon Dioxide 25 mmol/L (22-29) 04/30/25 03:15 Anion Gap 15.9 (5-19) 04/30/25 03:15 BUN 25 mg/dL (6-20) H 04/30/25 03:15 Creatinine 1.0 mg/dL (0.7-1.2) 04/30/25 03:15 GFR Calculation 77.3 mL/min (90-130) L 04/30/25 03:15 Glucose 109 mg/dL (65-115) 04/30/25 03:15 Calculated Osmolality 293 mOsm/kg (285-295) 04/30/25 03:15 Calcium 9.1 mg/dL (8.5-10.5) 04/30/25 03:15 Phosphorus 4.6 mg/dL (2.5-4.5) H 04/30/25 03:15 Total Bilirubin 0.5 mg/dL (0.15-1.2) 04/30/25 03:15 AST 14 U/L (0-40) 04/30/25 03:15 ALT 37 U/L (0-41) 04/30/25 03:15 Alkaline Phosphatase 117 U/L (40-130) 04/30/25 03:15 Troponin T Baseline 52 ng/L (0-15) H 04/28/25 08:35 Troponin T 120 Minute 50.36 ng/L (0-15) H 04/28/25 11:14 Delta Troponin T -1.64 ABS# (0-10) L 04/28/25 11:14 Troponin T Hi Sens 6Hr 41.22 ng/L (0-15) H 04/28/25 14:30 Troponin T Hi Sens 6Hr Delta -10.78 ng/L (0-12) L 04/28/25 14:30 NT-Pro-B Natriuret Pep 30994 pg/mL (0-125) H 04/28/25 08:35 Total Protein 6.2 g/dL (6.6-8.7) L 04/30/25 03:15 Albumin 3.6 g/dL (3.5-5.2) 04/30/25 03:15 Globulin 2.6 g/dL (1.3-4.6) 04/30/25 03:15 Vitals Last Vital Signs Temp 98.0 F 04/30/25 07:51 Pulse 76 04/30/25 07:51 Resp 25 H 04/30/25 07:51 BP 130/95 04/30/25 07:51 Pulse Ox 96 04/30/25 07:51 O2 Del Method Nasal Cannula 04/30/25 04:00 O2 Flow Rate 2 04/30/25 04:00 Discharge Plan Discharge Patient Disposition: Home Condition: Stable Prescriptions: New alprazolam 0.5 mg tablet 0.25 mg PO BEDTIME PRN (Reason: anxiety) Qty: 30 0RF sacubitril-valsartan [Entresto] 24-26 mg Tablet 1 tab PO BID 60 Days Qty: 120 0RF spironolactone 25 mg Tablet 25 mg PO DAILY 60 Days Qty: 60 0RF nitroglycerin 0.4 mg Tablet, Sublingual 0.4 mg sublingual Q5M PRN (Reason: Chest Pain) 60 Days Qty: 60 0RF Continued apixaban 5 mg tablet 5 mg PO BID Qty: 1 0RF atorvastatin [Lipitor] 40 mg tablet 40 mg PO DAILY Qty: 1 0RF aspirin 81 mg tablet 81 mg PO DAILY Qty: 1 0RF empagliflozin 10 mg tablet 10 mg PO DAILY Qty: 1 0RF metoprolol tartrate 25 mg tablet 25 mg PO BID Qty: 1 0RF furosemide [Lasix] 40 mg tablet 80 mg PO DAILY Qty: 60 0RF potassium chloride 10 mEq capsule, extended release 20 meq PO DAILY Qty: 60 0RF Discontinued losartan 25 mg tablet 25 mg PO DAILY Qty: 1 0RF Swamper OK for DC: Cardiology Referrals: Adam Logan MD [Physician, Cardiology] - 05/06/25 8:30 am Gomez Kelly DO [Primary Care Provider, Family Practice] - 05/07/25 11:40 am Allan Pa MD [Physician, Psychiatry] - 4-7 days Referral Note: underlying anxiety disorder and further management Discharge Diet: Advance as tolerated, Usual diet, Cardiac and Diabetic Discharge Activity: Resume usual activity, Increase activity as tolerated and Limit activity as instructed Patient Instructions: Nitroglycerin (By mouth), Spironolactone (By mouth), Sacubitril/Valsartan (By mouth), Fatigue, Chronic Hypertension (DC), Heart Murmur (GEN), Opioid Safety, Patient Portal & Nigel Instructions Discharge Attestations Time Spent in Discharge Care*: greater than 30 min Specific Discharge Activities: educating patient, educating and/or supporting family/caregiver, discussing with pcp/other providers, discussing with residential case manager/social workers/dc planners, documenting/other paperwork and evaluating patient/reviewing data Status at Discharge: Cognitive status at discharge: cognitively intact, Behavioral status at discharge: cooperative, Functional status at discharge: independent ambulation, Overall status at discharge: patient is back to baseline Quality Metrics Clinical Quality Measures [ No reported AMI, CVA or VTE this stay] Coding Level of Care Code 35697 Diagnoses Acute on chronic systolic congestive heart failure I50.23 Heart failure chronicity: acute on chronic Heart failure type: systolic Nonischemic congestive cardiomyopathy I42.0 Primary hypertension I10 Hypertension type: primary hypertension Mural thrombus of left ventricle I51.3 Smoking addiction F17.200
--- NOTE | 2025-04-30 16:46 | PC.NURSE ---
Addendum entered by Gina Baxter RN 04/30/25 16:47: Nursing went into room to give him his 1700 medications and tell patient that I will have his discharge papers and he can go home. Patient states I am not going home today. Original Note: Benigno from biology laboratory assistant just finished placing lifevest.
--- NOTE | 2025-04-30 16:50 | PC.NURSE ---
Addendum entered by Gina Baxter RN 04/30/25 17:45: Per Dr. Johnston RX's are called to [facility] pharmacy because [facility] is closed for the day. Addendum entered by Gina Baxter RN 04/30/25 17:38: Provider is asked to come and talk with patient with the daughter present. Dr. Johnston came down and talked with patient and daughter. Patient agreed to leave at 2030 when his life partner is done with work. Dr. Johnston okay'd this. Addendum entered by Gina Baxter RN 04/30/25 17:00: Provider is updated that nursing has been talking with patients daughter and explaining everything to her and she states understanding. She is trying to talk with him to get him to go home. Original Note: Provider is updated that.Matt Flores just got his lifevest placed and I told him that I would be in shortly with his discharge papers and he is refusing to leave. He wants to leave in the moring.
== END 2025-04-30 20:55 | disposition home or self-care (01) | DRG 291 ==
LOC: ER 08:35 → ER IP 10:35 → CSU 16:11
PROVIDERS: Admitting Provider Internal Medicine; Emergency Provider Family Medicine; PCP Family Medicine; Visit Provider Student in an Organized Health Care Education/Training Program
DX: I11.0 Hypertensive heart disease with heart failure (principal); I50.23 Acute on chronic systolic (congestive) heart failure; I42.0 Dilated cardiomyopathy; I51.3 Intracardiac thrombosis, not elsewhere classified; F17.290 Nicotine dependence, other tobacco product, uncomplicated; E78.5 Hyperlipidemia, unspecified; Z79.82 Long term (current) use of aspirin; Z79.01 Long term (current) use of anticoagulants
CPT/HCPCS: 36415; 71045; 80053; 83880; 84100; 84484; 85025; 93005; 93306; 99285; J1938; J9999